=== PATIENT | female | born 1995 | race African-American/Black ===

== ENCOUNTER 2022-03-29 20:03 | Observation (INO) ==
--- NOTE | 2022-03-29 21:13 | Emergency Department Note ---
Impression & Plan Acute appendicitis, Abdominal pain ED Provider Note NAME: JOCELYNN JOSEPH AGE: 26 SEX: F : 1995 ARRIVES VIA: Walk-In INFORMANT: Patient, ED PROVIDER(S): Stan Davis DO CHIEF COMPLAINT: Abdominal pain HPI: The patient is a 26-year-old female who presented to the emergency department for an evaluation of abdominal pain. The patient's had intermittent episodes of abdominal pain for the last 2 weeks. She notices lower abdominal pain. She denies having any black or bloody bowel movements. She has had some fever. She also notices nausea. She has had no vomiting. She denies having any chest pain or difficulty breathing. She has no dysuria or frequency. She was seen at [facility] and sent to the emergency department after an outpatient CAT scan showed possible appendicitis. The patient has no surgical history. She is not currently . The patient states the pain is worsened with movement as well as palpation over the lower abdomen. ROS: See above HPI for pertinent positives & negatives. A total of 10 systems reviewed and were otherwise negative. PAST MEDICAL HISTORY: See Below PAST SURGICAL HISTORY: See Below FAMILY HISTORY: See Below SOCIAL HISTORY: See Below HOME MEDICATIONS: See Below ALLERGIES: See Below VITALS: See Below PHYSICAL EXAMINATION: GENERAL: Patient is awake alert in no acute distress patient is resting comfortably and showing no signs of anxiety EYES: The conjunctivae are clear. The pupils are round and reactive. EARS, NOSE, MOUTH AND THROAT: The nose is without any evidence of any deformity. Mucous membranes are moist. Tongue is midline. NECK: The neck is nontender and supple. RESPIRATORY: Normal respiratory effort is noted there is no evidence of wheezing rhonchi or rales CARDIOVASCULAR: Regular rate and rhythm noted there no murmurs rubs or gallops normal S1 normal S2. GASTROINTESTINAL: Abdomen was soft and nondistended. There was significant left lower quadrant tenderness to palpation. There is mild guarding in the left lower quadrant. MUSCULOSKELETAL/EXTREMITIES: There is no evidence of gross deformity full range of motion is noted in the hips and shoulders. SKIN: There is no obvious evidence of any rash. There are no petechiae, pallor or cyanosis noted. NEUROLOGIC: Patient is awake alert and oriented x3 MEDICAL DECISION MAKING: The patient is a 26-year-old male who presented to the emergency department for an evaluation of lower abdominal pain. The patient has had ongoing symptoms for the last week. She also has noticed fever. She was sent for an outpatient CAT scan which did reveal signs of appendicitis. For this reason she was sent to the emergency department for further evaluation. I discussed her condition with the on-call general surgeon. She did not wish to have any pain medication in the emergency department. The surgeon agreed to evaluate the patient in the emergency department. Triage Nursing notes reviewed. Prior medical records reviewed Vital Signs: reviewed and remarkable for no significant abnormalities Differential diagnosis: Appendicitis, ovarian cyst, ovarian torsion, ectopic , TOA, PID, infections, diverticulitis, UTI, obstruction, mesenteric ischemia, aortic pathology, inflammatory bowel disease, renal colic, PUD, pancreatitis, biliary pathology, hernia, volvulus, constipation, as well as other pathologies. ER treatment provided: See below Diagnostics interpreted by me: ECG: none Laboratory studies: As stated above and show below. Imaging studies: See below Consultation(s): Dr. Carrasco was notified about the patient. He will evaluate the patient in the ER. Past Med/Surg History Medical History (Updated 03/30/22 @ 00:16 by Stan Davis DO) Acute appendicitis with localized peritonitis Hepatitis B Social History Smoking Status: Never smoker Feels Safe at Home: Yes Allergies Allergies Allergy/AdvReac Type Severity Reaction Status Date / Time No Known Allergies Allergy Verified 03/29/22 22:00 Home Meds Home Medications Medication Instructions Recorded Confirmed Paolo 03/29/22 Results & Data (ED) Vital Signs Vital Signs - 24 hr 03/29/22 20:26 03/29/22 21:07 03/29/22 21:10 Temperature 37.1 C Temperature Source Temporal Artery Scan Pulse Rate 69 72 64 Pulse Rate [Apical] Pulse Rate from SpO2 Sensor 70 62 Respiratory Rate 20 21 16 Respiratory Effort / Characteristics Non-Labored Respiratory Depth Normal Respiratory Pattern Regular Blood Pressure 115/72 Blood Pressure [Right Arm] Blood Pressure Mean 86 Blood Pressure Mean [Right Arm] Blood Pressure Position Sitting Blood Pressure Position [Right Arm] Pulse Oximetry 98 100 100 Oxygen Delivery Method Room Air Oxygen Flow Rate Sepsis Recent Fever Within 48 Hours Yes Sepsis New/Unexplained Change in Mental Status N/A Sepsis Action Taken by Nursing No Action Required 03/29/22 21:20 03/29/22 20:58 03/29/22 23:15 Temperature 36.4 C L Temperature Source Oral Pulse Rate 65 88 Pulse Rate [Apical] 76 Pulse Rate from SpO2 Sensor 62 Respiratory Rate 17 12 24 Respiratory Effort / Characteristics Respiratory Depth Respiratory Pattern Blood Pressure 113/71 107/75 Blood Pressure [Right Arm] 117/71 Blood Pressure Mean 85 85 Blood Pressure Mean [Right Arm] 86 Blood Pressure Position Blood Pressure Position [Right Arm] Pulse Oximetry 100 100 100 Oxygen Delivery Method Room Air Room Air Oxymask Oxygen Flow Rate 4 Sepsis Recent Fever Within 48 Hours Sepsis New/Unexplained Change in Mental Status Sepsis Action Taken by Nursing 03/29/22 23:25 03/29/22 23:35 03/29/22 23:35 Temperature 36.4 C L 36.4 C L 36.4 C L Temperature Source Oral Oral Oral Pulse Rate Pulse Rate [Apical] 79 64 64 Pulse Rate from SpO2 Sensor Respiratory Rate 23 16 16 Respiratory Effort / Characteristics Respiratory Depth Respiratory Pattern Blood Pressure Blood Pressure [Right Arm] 116/72 114/64 114/64 Blood Pressure Mean Blood Pressure Mean [Right Arm] 86 80 80 Blood Pressure Position Blood Pressure Position [Right Arm] Lying Pulse Oximetry 100 99 100 Oxygen Delivery Method Oxymask Room Air Room Air Oxygen Flow Rate 2 Sepsis Recent Fever Within 48 Hours Sepsis New/Unexplained Change in Mental Status Sepsis Action Taken by Nursing 03/29/22 23:45 03/29/22 23:55 Temperature 36.4 C L 36.4 C L Temperature Source Oral Oral Pulse Rate Pulse Rate [Apical] 62 64 Pulse Rate from SpO2 Sensor Respiratory Rate 19 14 Respiratory Effort / Characteristics Respiratory Depth Respiratory Pattern Blood Pressure Blood Pressure [Right Arm] 108/64 105/66 Blood Pressure Mean Blood Pressure Mean [Right Arm] 78 79 Blood Pressure Position Blood Pressure Position [Right Arm] Pulse Oximetry 100 100 Oxygen Delivery Method Room Air Room Air Oxygen Flow Rate Sepsis Recent Fever Within 48 Hours Sepsis New/Unexplained Change in Mental Status Sepsis Action Taken by [facility] Medications Current Medication List: was personally reviewed by me Laboratory Data Attestation: I reviewed the patient's lab results. Lab Results 03/29/22 Range/Units 20:33 SARS-CoV-2, RNA, NAAT NEGATIVE (NEGATIVE) Administered Medications Discontinued Medications Bupivacaine HCl (Bupivacaine 0.5 % 5 Mg/1 Ml Mpf 30ml Vial) Confirm Administered Dose 30 ml .ROUTE .STK-MED ONE Stop: 03/29/22 21:20 Last Admin: 03/29/22 22:51 Dose: 20 ml Documented By: VERENICE Epinephrine HCl (Epinephrine Inj 1 Mg/Ml Amp) Confirm Administered Dose 1 mg .ROUTE .STK-MED ONE Stop: 03/29/22 21:20 Last Admin: 03/29/22 22:51 Dose: 0.15 mg Documented By: VERENICE Cefoxitin Sodium 1,000 mg/ (Dextrose) 60 mls @ 120 mls/hr IV PREOP@2215 ONE Stop: 03/29/22 22:44 Last Admin: 03/29/22 22:20 Dose: 120 mls/hr Documented By: ALIRIO Imaging Data Radiologist's Impression: Patient: JOCELYNN JOSEPH Admit Date: 03/29/22 MR#: [id number] Address1: [address] [place] [address] Acct ID:[id number] Address2: [address] Date: 1995 [facility] Zip: [place] [address] Age: 26 Location: CT Sex: F Room/Bed: Att Phy: Vianey Ny D.O. Diagnosis: RLQ PAIN, R/O APPY *HOLD PT/CALL REPORT* Sherry Phy: Vianey Ny D.O. Service Date: 03/29/22 Fam Phy: Interpreting Phy: Jeffery Garner MD Admit Phy: Ordering Phy: Vianey Ny D.O. cc: ~ CT OF THE ABDOMEN AND PELVIS WITH AND WITHOUT CONTRAST CLINICAL HISTORY: Right lower quadrant pain. Evaluate for acute appendicitis. COMPARISON STUDY: None. TECHNIQUE: Unenhanced axial images of the abdomen were obtained followed by contrast-enhanced axial images of the abdomen and pelvis. Intravenous injection of 92 cc of Optiray 320 IV was uneventful. Automated exposure control was utilized for the study. A dose lowering technique was utilized adhering to the principles of ALARA. Oral contrast was administered. CT DOSE: 444.82 mGy.cm FINDINGS: The right breast is not visualized on this abdominal CT. Subpleural right lower lobe opacity reflects atelectasis. No pneumatosis, free air or portal venous gas is present. Liver, spleen, adrenal glands, kidneys and pancreas are unremarkable. There is no biliary or pancreatic ductal dilatation. No peripancreatic or pericholecystic stranding is present. Nephrograms are symmetric. No hydronephrosis is present. The caliber and wall thickness of small and large bowel are normal. The proximal aspect of the appendix is normal. The remainder of the appendix is mildly dilated, measuring 8 mm in caliber. There may be minimal periappendiceal infiltration. No free air or abscess is present. The appendiceal wall is likely thickened. No contrast within the appendix is present. There is no free fluid. Major vasculature is patent. 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 IMPRESSION: Findings suggestive of early acute appendicitis. No free air or abscess. This finding will be called/faxed to ordering provider at time of dictation. ACT 112: Negative or not required by law. Electronically signed by: Jeffery Garner M.D. 03/29/2022 7:25 PM Dictated: 03/29/221913 Transcribed: 03/29/221913 Discharge Plan Visit Data Chief Complaint: Flank Pain Stated Complaint: REF FROM CT, APENDICITIS ED Provider: Stan Davis Discharge Problem: Acute appendicitis, Abdominal pain Patient Disposition: Being Evaluated by Surgeon Discharge Instructions Interventions: ED Discharge Assessment Last Done: 03/29/22 21:31
[2022-03-29] MEDS ORDERED: HYDROmorphone INJ 1 MG/ML SYRINGE IV PRN (21:17)
[2022-03-29] MEDS ORDERED: PHENYLEPHRINE 100MCG/ML 5ML SYR IV PRN (21:17)
[2022-03-29] MEDS ORDERED: ePHEDrine sulfate 50 MG/ML AMP IV PRN (21:17)
[2022-03-29] MEDS ORDERED: fentaNYL citrate 100 MCG/2 ML VIAL IV PRN (21:17)
[2022-03-29] MEDS ORDERED: LABETALOL HCL IV 5 MG/ML 20ML IV PRN (21:17)
[2022-03-29] MEDS ORDERED: ONDANSETRON INJ 2 MG/ML 2 ML VIAL IV PRN (21:17)
[2022-03-29] MEDS ORDERED: MEPERIDINE HCL 25 MG/ML CARP/VIAL IV PRN (21:17)
[2022-03-29] MEDS ORDERED: ATROPINE SULFATE 0.1 MG/ML 10ML SYR IV PRN (21:17)
[2022-03-29] MEDS ORDERED: EPINEPHrine INJ 1 MG/ML AMP ONE (21:19)
[2022-03-29] MEDS ORDERED: BUPIVACAINE 0.5 % 5 MG/1 ML MPF 30ML VIAL ONE (21:19)
--- NOTE | 2022-03-29 21:19 | Anesthesiology Consultation ---
Date of Service March 29, 2022 Assessment & Plan (1) Encounter for pre-operative examination: Chart Review Chart Review: Acceptable Risk for Surgery and Patient NOT seen in Pre Admission Testing Consults Requested none History Surgery Operation Date: 03/29/22 22:00 Proposed Procedures p Laparoscopic Appendectomy - Herman Carrasco MD Height/Weight Weight: 56.7 kg Social History Smoking Status: Never smoker Physical Exam Vital Signs Last Vital Signs Temp 37.1 C 03/29/22 20:26 Pulse 69 03/29/22 20:26 Resp 20 03/29/22 20:26 BP 115/72 03/29/22 20:26 Pulse Ox 98 03/29/22 20:26 O2 Del Method 03/29/22 20:26
[2022-03-29] MEDS ORDERED: MIDAZOLAM HCL 1 MG/ML 2ML VIAL ONE (21:25)
[2022-03-29] MEDS ORDERED: fentaNYL citrate 100 MCG/2 ML VIAL ONE (21:25)
[2022-03-29] MEDS ORDERED: GLYCOPYRROLATE 0.2 MG/ML VIAL ONE (21:29)
[2022-03-29] MEDS ORDERED: DEXAMETHASONE SOD INJ 4 MG/ML VIAL ONE (21:29)
[2022-03-29] MEDS ORDERED: ROCURONIUM BROMIDE 10 MG/ML 5 ML VIAL IV ONE (21:29)
[2022-03-29] MEDS ORDERED: LIDOCAINE 2% MPF LOCAL 5 ML VIAL INFIL ONE (21:29)
[2022-03-29] MEDS ORDERED: PROPOFOL IV EMULSION 10 MG/ML 20 ML VIAL IV ONE (21:29)
[2022-03-29] MEDS ORDERED: NEOSTIGMINE METHYLSULFATE 1 MG/ML 10ML VIAL ONE (21:29)
[2022-03-29] MEDS ORDERED: ONDANSETRON INJ 2 MG/ML 2 ML VIAL ONE (21:29)
[2022-03-29] MEDS ORDERED: Patient's ALLERGY Info needs ENTERED SCH (21:45)
--- NOTE | 2022-03-29 21:47 | History & Physical Report ---
Date of Service March 29, 2022 Assessment & Plan (1) Acute appendicitis with localized peritonitis: Plan: IVF IV abx to OR for lap appendectomy History of Present Illness Primary Care Provider: Vianey Ny DO This is a 26-year-old female who presented to the emergency department for an evaluation of abdominal pain. She was seen at [facility] and sent to the emergency department after an outpatient CAT scan showed possible appendicitis. The patient has no surgical history. She is not currently . The patient states the pain is worsened with movement as well as palpation over the lower abdomen. A CT scan shows early appendicitis. Past Med/Surg History Medical History (Updated 03/29/22 @ 21:48 by Herman Carrasco MD) Acute appendicitis with localized peritonitis Social History Smoking Status: Never smoker Feels Safe at Home: Yes Review of Systems + fever and + anorexia; no chills and no sweats no problem reported no problem reported no cough and no dyspnea no chest pain + abdominal pain and + nausea; no vomiting and no change in bowel habits no dysuria no back pain and no neck pain no rash and no lesions no localized weakness and no generalized weakness no behavioral changes Physical Exam Constitutional: WD/WN, vitals as above Eyes: PERRL, conjunctivae normal, anicteric sclerae ENMT: external ear and nose normal, oropharynx normal Neck: trachea midline Respiratory: normal respiratory effort, lungs clear to auscultation Cardiovascular: RRR, no murmur, no edema Gastrointestinal (Abdomen): Inspection/Auscultation: abdomen normal to inspection and normal bowel sounds; abdomen not distended Percussion/Palpation: + abdomen tender, + guarding and abdomen soft; abdomen not rigid Musculoskeletal: Head/Neck/Chest: normocephalic and head atraumatic Skin: no rashes, warm and dry ASA Classification ASA ASA2E Results & Data ([facility]) Vital Signs (Past 12 Hours) Vital Signs Temp Pulse Resp BP Pulse Ox O2 Del Method 03/29/22 20:58 88 12 107/75 100 Room Air 03/29/22 21:20 65 17 113/71 100 Room Air 03/29/22 21:10 64 16 100 03/29/22 21:07 72 21 100 03/29/22 20:26 37.1 C 69 20 115/72 98 Room Air Diagnostic Findings CT OF THE ABDOMEN AND PELVIS WITH AND WITHOUT CONTRAST CLINICAL HISTORY: Right lower quadrant pain. Evaluate for acute appendicitis. COMPARISON STUDY: None. TECHNIQUE: Unenhanced axial images of the abdomen were obtained followed by contrast-enhanced axial images of the abdomen and pelvis. Intravenous injection of 92 cc of Optiray 320 IV was uneventful. Automated exposure control was utilized for the study. A dose lowering technique was utilized adhering to the principles of ALARA. Oral contrast was administered. CT DOSE: 444.82 mGy.cm FINDINGS: The right breast is not visualized on this abdominal CT. Subpleural right lower lobe opacity reflects atelectasis. No pneumatosis, free air or portal venous gas is present. Liver, spleen, adrenal glands, kidneys and pancreas are unremarkable. There is no biliary or pancreatic ductal dilatation. No peripancreatic or pericholecystic stranding is present. Nephrograms are symmetric. No hydronephrosis is present. The caliber and wall thickness of small and large bowel are normal. The proximal aspect of the appendix is normal. The remainder of the appendix is mildly dilated, measuring 8 mm in caliber. There may be minimal periappendiceal infiltration. No free air or abscess is present. The appendiceal wall is likely thickened. No contrast within the appendix is present. There is no free fluid. Major vasculature is patent. 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 IMPRESSION: Findings suggestive of early acute appendicitis. No free air or abscess. This finding will be called/faxed to ordering provider at time of dictation
[2022-03-29] MEDS ORDERED: IBUPROFEN 600 MG TAB PO PRN (21:48)
[2022-03-29] MEDS ORDERED: MoRPHine SULFATE 4 MG/ML 1 ML CARP\\VIAL IV PRN (21:48)
[2022-03-29] MEDS ORDERED: IBUPROFEN 200 MG TAB PO PRN (21:48)
[2022-03-29] MEDS ORDERED: oxyCODONE/ACETAMINOPHEN 5mg/325mg TAB PO PRN ×2 (21:48)
[2022-03-29] MEDS ORDERED: MoRPHine SULFATE 2 MG/ML CARP IV PRN (21:48)
[2022-03-29] MEDS ORDERED: cefOXitin 1,000 MG/50 ML BAG IV STA (21:48)
[2022-03-29] MEDS ORDERED: ESMOLOL HCL INJ 10 MG/ML 10ML VIAL IV ONE (22:24)
[2022-03-29] MEDS ORDERED: KETOROLAC 30 MG/ML VIAL ONE (22:41)
--- NOTE | 2022-03-29 22:56 | Post Operative Brief Note ---
Immediate Post Op Note v1 Date of Surgery March 29, 2022 Pre & Post Diagnosis Operation Date: 03/29/22 22:00 Pre-Op Diagnosis: Acute appendicitis with localized peritonitis Post-Op Diagnosis: Acute appendicitis with localized peritonitis I identified the patient and participated in the time-out.: Yes Procedure Operation Date: 03/29/22 22:00 Actual Procedures p Laparoscopic Appendectomy(Not Applicable) - Herman Carrasco MD Surgeon Herman Carrasco MD Building [employer] none Estimated Blood Loss 5 Findings Consistent with Post-Op Diagnosis acute early appendicitis
--- NOTE | 2022-03-29 23:47 | Anesthesiology Progress Note ---
Date of Service March 29, 2022 Anesthesia Post Procedure Vital Signs Vital Signs: Temp Pulse Pulse Resp BP BP Pulse Ox 03/29/22 23:35 36.4 C L 64 16 114/64 100 03/29/22 23:35 36.4 C L 64 16 114/64 99 03/29/22 23:25 36.4 C L 79 23 116/72 100 03/29/22 23:15 36.4 C L 76 24 117/71 100 03/29/22 20:58 88 12 107/75 100 03/29/22 21:20 65 17 113/71 100 03/29/22 21:10 64 16 100 03/29/22 21:07 72 21 100 03/29/22 20:26 37.1 C 69 20 115/72 98 O2 Del Method O2 Flow Rate 03/29/22 23:35 Room Air 03/29/22 23:35 Room Air 03/29/22 23:25 Oxymask 2 03/29/22 23:15 Oxymask 4 03/29/22 20:58 Room Air 03/29/22 21:20 Room Air 03/29/22 21:10 03/29/22 21:07 03/29/22 20:26 Room Air Transfer of Care Handoff Completed per policy Notes Mental Status: alert / awake / arousable Patient Amnestic to Procedure: Yes Nausea / Vomiting: adequately controlled Pain: adequately controlled Airway Patency, RR, SpO2: stable & adequate BP & HR: stable & adequate Hydration State: stable & adequate Anesthetic Complications: no major complications apparent and Pt Satisfied with anesthetic care Notes: The patient is awake and comfortable. Her temp is now 36.4.
[2022-03-30] MEDS ORDERED: ONDANSETRON INJ 2 MG/ML 2 ML VIAL IV PRN (00:31)
[2022-03-30] MEDS: LACTATED RINGER'S 1,000 ML IV SCH ×2 (00:44→12:47)
[2022-03-30 01:52] LABS: Basophils # (auto) 0.01 K/uL (0-0.2); Basophils % (auto) 0.2 %; Eosinophils # (auto) 0.03 K/uL (0-0.50); Eosinophils % (auto) 0.6 %; Hemoglobin 11.6 g/dl (12.0-16.0); Immature Granulocytes # (auto) 0.01 K/uL (0.00-0.02); Immature Granulocytes % (auto) 0.2 %; Lymphocytes # (auto) 0.74 K/uL (1.2-3.4); Lymphocytes % (auto) 14.1 %; Mean Corpuscular Hemoglobin 26.1 pg (25.0-34.0); Mean Corpuscular Hgb Conc 31.4 g/dL (32.0-36.0); Mean Corpuscular Volume 83.3 fL (80.0-100.0); Mean Platelet Volume 10.2 fL (9.4-12.3); Monocytes # (auto) 0.13 K/uL (0.24-0.82); Monocytes % (auto) 2.5 %; Neutrophils # (auto) 4.32 K/uL (1.4-6.5); Neutrophils % (auto) 82.4 %; Platelet Count 230 K/uL (130-400); RDW Coefficient of Variation 12.8 % (11.5-14.5); RDW Standard Deviation 38.8 fL (36.4-46.3); Red Blood Count 4.44 M/uL (3.93-5.22); White Blood Count 5.24 K/ul (4.8-10.8)
[2022-03-30 02:16] LABS: Pregnancy Test, Serum Negative (Negative)
[2022-03-30 02:24] LABS: Albumin Globulin Ratio 1.4 (0.9-2); BUN Creatinine Ratio 10.9 (10-20); Bilirubin,Total 0.3 mg/dl (0.2-1.0); Calcium 8.6 mg/dl (8.5-10.1); Creatinine Clr Calc Pharmacy 73.9 ml/min; Est GFR (African American) 98.2 ml/min; Est GFR (Non-African American) 84.7 ml/min; Globulin 2.9 gm/dl (2.5-4.0); Potassium 3.9 mmol/L (3.5-5.1); Total Protein 6.9 gm/dl (6.0-8.3)
[2022-03-30] MEDS: cefOXitin 2,000 MG in DEXTROSE 5% 50 ML IV SCH ×2 (04:18→12:47)
--- NOTE | 2022-03-30 08:12 | Operative Report (OR) ---
DATE OF PROCEDURE: 03/29/2022. PREOPERATIVE DIAGNOSIS: Acute appendicitis. POSTOPERATIVE DIAGNOSIS: Acute early appendicitis. PROCEDURE PERFORMED: Laparoscopic appendectomy. SURGEON: Herman Carrasco MD CATH LAB NURSE: None. ANESTHESIA: General endotracheal with 0.5% Marcaine with epinephrine local. ESTIMATED BLOOD LOSS: 5 mL. DRAINS: None. COMPLICATIONS: None. SPECIMEN: Appendix sent for pathologic evaluation. INDICATIONS FOR PROCEDURE: This is a 26-year-old female seen through the ED with acute abdominal amaury n. She had a CT scan, which was consistent with an early appendicitis. She had peritoneal signs on exam. We therefore recommended a laparoscopic appendectomy. We went over the risks of an open proce dure, abscess requiring reoperation or CT drainage, wound problems including hernia and infection. S he agreed to this and wished to proceed. DESCRIPTION OF PROCEDURE: The patient was taken to the OR and underwent excellent general endotrache al anesthesia. Abdomen was prepped and draped in normal sterile fashion. A transverse supraumbilica l incision was made and with tension on the abdominal wall, a Veress needle was inserted in gently. Good pneumoperitoneum was then achieved to 15 mmHg pressure. A visualized 11 port was then placed in the supraumbilical position with tension on the abdominal wall. Once the port was placed, good diag nostic lap was performed. Appendix was identified and inflamed. A 5 suprapubic, a 5 right upper celsa drant and a 12 left lower quadrant port were placed. The patient was placed in head down and rolled to the left. The cecum was grasped with a Harsh clamp. The tip of the appendix was grasped and st retched to display the mesoappendix. Mesoappendix was taken down with a Harmonic scalpel with minima l bleeding. Once this was taken down to the base of the appendix, a ABIMAEL 45 varela load was used to mullins sect the appendix at its base. The appendix was brought out through an Endobag in the left lower celsa drant port and then sent for pathologic evaluation. The ports were replaced. Pneumoperitoneum was r e-established. The abdomen was then irrigated out with about 250 mL of saline. There was minimal bl eeding on the staple line. No other abnormalities were noted. The ports were then removed. The pne umoperitoneum was decompressed. 0 Vicryl was used to close the fascial defect in the 11 and 12 ports . 0.5% Marcaine was used to create a local field block in all the incisions. Interrupted Vicryl was used to close the skin. Steri-Strips and benzoin were used to reinforce the incision. Sterile dress ings were applied. She tolerated the procedure without any complication and was sent to the postoper ative recovery for a period of observation. Once she meets criteria, she will be sent to the floor f or the rest of her care. Job ID: [id number]
--- NOTE | 2022-03-30 14:08 | Surgery Progress Note ---
Date of Service March 30, 2022 Assessment & Plan (1) Acute appendicitis with localized peritonitis: Plan: IVF IV abx to OR for lap appendectomy 03/30/2022 2:06PM. Dr. monreal F/U S/P lap appy, POD 1 pt is doing fine, no fever, good control incision pain, pt wants to go today, the post -op care instruction was given, F/U 2 weeks, Admission and Anticipated Discharge Date Admission Date: March 29, 2022 Subjective S/U S/ P lap appy, POD 1 pt is doing fine, tolerated diet, no fever, Review of Systems Constitutional: + fever and + anorexia; no chills and no sweats Eyes: no problem reported Ear, Nose, Mouth, Throat: no problem reported Respiratory: no cough and no dyspnea Cardiovascular: no chest pain Gastrointestinal: + abdominal pain and + nausea; no vomiting and no change in bowel habits Genitourinary: no dysuria Musculoskeletal: no back pain and no neck pain Integumentary: no rash and no lesions Neurologic: no localized weakness and no generalized weakness Psychiatric: no behavioral changes Results & Data ([facility]) Vital Signs (Past 12 Hours) Vital Signs Temp Pulse Pulse Pulse Resp BP BP 03/30/22 12:57 36.5 C 64 69 64 16 92/57 L 98/63 L 03/30/22 06:33 36.5 C 64 16 98/63 L 03/30/22 03:15 36.4 C L 63 16 103/66 03/30/22 02:30 36.6 C 68 16 98/65 L Pulse Ox O2 Del Method 03/30/22 12:57 98 03/30/22 06:33 98 Room Air 03/30/22 03:15 99 Room Air 03/30/22 02:30 99 Room Air Laboratory Results Abnormal lab results 03/30/22 03/30/22 Range/Units 01:25 01:25 Hgb 11.6 L (12.0-16.0) g/dl MCHC 31.4 L (32.0-36.0) g/dL Lymph # (Auto) 0.74 L (1.2-3.4) K/uL Yancey # (Auto) 0.13 L (0.24-0.82) K/uL Glucose 112 H (70-99(Fasting)) mg/dl
--- NOTE | 2022-03-30 21:24 | Discharge Summary (DS) ---
DATE OF ADMISSION: 03/29/2022 DATE OF DISCHARGE: 03/30/2022 ADMISSION DIAGNOSIS: Acute appendicitis. DISCHARGE DIAGNOSIS: Acute appendicitis. OPERATION: Laparoscopic appendectomy. SURGEON: Herman Carrasco MD. DETAILS OF DISCHARGE SUMMARY: This is a 26-year-old female who presented to ED with acute abdominal pain. The patient had a CT scan diagnosis of acute appendicitis and the patient was taken to the OR by Dr. Herman Carrasco for laparoscopic appendectomy, and the patient tolerated the procedure well. After the procedure, the patient was transferred to recovery room and later on transferred to [facility]. The patient is doing fine. She tolerated the diet. No significant abdominal pain. No sam sea, no vomiting, no fever. PHYSICAL EXAMINATION: VITAL SIGNS: Temperature is 36.5, respiratory rate of 16, heart rate at 69, blood pressure 98/63, O2 saturation 98% on room air. GENERAL: The patient is alert, awake, oriented x3. HEENT: Within normal limitation. NEUROLOGIC: Intact. NECK: No JVD. CHEST: Bilateral lung sounds clear. HEART: Normal S1 and S2. No murmur. ABDOMEN: Soft, mild tenderness on the incision site. No rebound pain, no distention. All incisions intact. No redness. Bowel sounds positive. EXTREMITIES: All extremities with no edema. The patient wanted to go home. We gave the patient postoperative care instructions, the patient unde rshelena, and Dr. Carrasco will follow up with the patient in 2 weeks. Job ID: [id number]
== END 2022-03-30 14:45 | disposition home or self-care (01) ==
LOC: ED 20:03 → 3N 21:22 → ASU 21:22

== ENCOUNTER 2023-06-18 16:52 | Inpatient (IN) ==
[2023-06-18 18:14] LABS: Total Protein Urine Random 14.4 mg/dl (0-11.9)
[2023-06-18 18:16] LABS: Basophils # (auto) 0.05 K/uL (0.00-0.20); Basophils % (auto) 0.7 %; Eosinophils # (auto) 0.11 K/uL (0.00-0.50); Eosinophils % (auto) 1.4 %; Hematocrit (blood only) 33.3 % (37.0-47.0); Hemoglobin 10.3 g/dl (12.0-16.0); Immature Granulocytes # (auto) 0.05 K/uL (0.01-0.20); Immature Granulocytes % (auto) 0.7 %; Lymphocytes # (auto) 1.64 K/uL (1.20-3.40); Lymphocytes % (auto) 21.4 %; Mean Corpuscular Hgb Conc 30.9 g/dL (32.0-36.0); Mean Corpuscular Volume 77.6 fL (80.0-100.0); Mean Platelet Volume 12.8 fL (9.4-12.4); Monocytes # (auto) 0.94 K/uL (0.11-0.59); Monocytes % (auto) 12.2 %; Neutrophils # (auto) 4.89 K/uL (1.40-6.50); Neutrophils % (auto) 63.6 %; Nucleated RBC # (auto) 0.04 K/uL (0.00-0.12); Nucleated RBC % (auto) 0.5 %; Platelet Count 219 K/uL (130-400); RDW Coefficient of Variation 14.4 % (11.5-14.5); RDW Standard Deviation 39.8 fL (36.4-46.3); Red Blood Count 4.29 M/uL (4.20-5.40); White Blood Count 7.68 K/ul (4.8-10.8)
[2023-06-18 18:19] LABS: Creatinine Urine Random 54.1 mg/dl; Protein Creatinine Ratio Urine 0.3 (0-0.2)
[2023-06-18] MEDS ORDERED: NIFEdipine 10 MG CAP PO STA ×2 (18:23→18:27)
[2023-06-18] MEDS ORDERED: NIFEdipine 10 MG CAP ONE (18:26)
[2023-06-18] MEDS: LACTATED RINGER'S 1,000 ML IV PRN (18:30)
[2023-06-18 18:33] LABS: Albumin Globulin Ratio 1.1 (0.9-2); Albumin Level 3.4 gm/dl (3.4-5.0); BUN Creatinine Ratio 9.9 (10-20); Bilirubin,Total 0.3 mg/dl (0.2-1.0); Calcium 9.1 mg/dl (8.6-10.3); Creatinine Clr Calc Pharmacy 83.2 ml/min; Est GFR (African American) 87.1 ml/min; Est GFR (Non-African American) 75.2 ml/min; Globulin 3.2 gm/dl (2.5-4.0); Potassium 4.2 mmol/L (3.5-5.1); Total Protein 6.6 gm/dl (6.0-8.3)
[2023-06-18] MEDS ORDERED: OXYTOCIN 30 UNITS/500 ML BAG IV PRN ×2 (18:39→19:38)
[2023-06-18] MEDS ORDERED: MAG SULFATE 4GM BOLUS FROM BAG IV ONE (18:39)
[2023-06-18] MEDS ORDERED: LIDOCAINE 1% LOCAL 20 ML VIAL INFIL PRN (18:39)
--- NOTE | 2023-06-18 18:52 | History & Physical Report ---
Date of Service June 18, 2023 Assessment & Plan (1) Pre-eclampsia during in third trimester, antepartum: Plan: IUP at 36 5/7 weeks who presented to L&D for decreased movement but did have BP's in severe range requiring one dose of procardia urine protein/creatinine ratio is elevated so makes diagnosis of Pre-Eclampsia with BP's in the severe range - rest of PIH labs are in the normal range but creatinine is elevated at 1.01 over prior level of 0.84 in october 2022 cervical balloon placed successfully and will start low dose pitocin overnight because of unfavorable cervix to augment the contractions she is already experiencing. begin MgSO4 for seizure prophylaxis anticipate vaginal History of Present Illness Primary Care Provider: Soraya Alonso DO Brinda Patient is a 27 yo female EDC 07/11/23 who presents to L&D because of decreased movement. heart tracing is reactive and she is janna every 5 minutes but they are mild. However, her BP is in the severe range consistently 160-170/105-110. she denies any PIH symptoms at this time. protein dips negative for protein but urine protein/creatinine ratio is 0.3 and creatinine is 1.01. creatinine in 11/10 was 0.84pregnancy is also complicated by alpha thalassemia minor carrier and chronic active Hepatitis B for which she is followed by GI. her most recent viral load was low and she is no longer taking Tenofovir. Allergies Allergy/AdvReac Type Severity Reaction Status Date / Time No Known Allergies Allergy Verified 06/15/23 08:54 Home Medications Medication Instructions Recorded Confirmed Type prenat.vits,sherly,zfl-gkoh-dhmki PO 05/13/22 06/15/23 History tenofovir alafenamide 25 mg tablet 25 mg PO 12/29/22 06/15/23 History (Vemlidy) breast pump #1 ea 04/20/23 06/15/23 Rx Patient History Medical History (Updated 06/18/23 @ 19:50 by Ada Hadley MD, FACOG) Acute appendicitis with localized peritonitis Breast lipoma non cancerous 08/2022, R breast Examination, routine, over 18 years of age Hepatitis B carrier Ovarian cyst Positive BRENDEN (antinuclear antibody) Thalassemia Thalassemia alpha carrier Varicella vaccine Surgical History H/O neck surgery S/P appendectomy Status post third molar tooth extraction Family History Father Hepatitis B Diabetes Denies family history of Ovarian cancer Breast cancer Colorectal cancer Uterine cancer Social History Smoking Status: Never smoker Second Hand Exposure: No; Do You Dip or Chew Tobacco: No; Hx Alcohol Use: No Hx Substance Use: No Preferred Language: Pakistani Communication Ability: Effective Theater Technician Required: No Beliefs That Will Affect Care: None marital status: marital status details: Deepak Gusman [phone] Current Living Situation: Spouse Current Living Situation Comment: spouse current occupational status: unemployed Feels Safe at Home: Yes Assistive Devices: None Review of Systems All systems reviewed & are unremarkable except as noted in HPI & below Physical Exam Constitutional: WD/WN, vitals as above Respiratory: normal respiratory effort, lungs clear to auscultation Cardiovascular: RRR, no murmur, no edema Neurologic: normal DTR's, no clonus Psychiatric: A+Ox3, euthymic affect Genitourinary: OB Exam Abdomen: + vertex, + estimated weight (6-7 pounds) and + regular contractions (Q 5-7 minutes) Manual OB Exam: + cervical dilation fingertip, + cervical effacement 50% and + station -2 OB Exam Monitor Tracing: + external FHT monitor used, + external uterine monitor used, + category I and + normal FHT variability (decreased) patient consents to placement of cervical balloon. speculum was placed and cervix visualized. whiting catheter placed without difficulty. the balloon filled with 40cc of sterile water. the catheter was then placed on traction and secured to her right thigh. patient tolerated procedure well. Results & Data Vital Signs (Past 12 Hours) Vital Signs Temp Pulse Resp BP Pulse Ox 06/18/23 17:24 98.1 F 18 06/18/23 18:18 58 L 06/18/23 18:18 168/105 H 06/18/23 18:05 64 06/18/23 18:05 177/106 H 06/18/23 17:58 57 L 06/18/23 17:58 176/101 H 06/18/23 17:37 100 06/18/23 17:37 61 06/18/23 17:38 60 06/18/23 17:38 178/109 H 06/18/23 17:32 100 06/18/23 17:32 60 06/18/23 17:29 59 L 06/18/23 17:29 168/109 H 06/18/23 17:27 100 06/18/23 17:27 64 06/18/23 17:28 60 06/18/23 17:28 161/114 H 06/18/23 17:22 66 100 06/18/23 17:17 65 100 06/18/23 17:16 67 134/91 06/18/23 17:12 69 99 06/18/23 17:07 60 99 06/18/23 17:02 71 100 Coding Level of Care Code None Diagnoses Pre-eclampsia during in third trimester, antepartum O14.93 CPT Codes Misx Procedure Codes - 57402 Placement of cervical dilator: 70824 Placement of cervical dilator ([id number])
[2023-06-18] MEDS ORDERED: BUTORPHANOL TARTRATE 1 MG/ML VIAL IV PRN (19:56)
[2023-06-18] MEDS ORDERED: Nursing to Pharmacy Communication SCH (20:00)
[2023-06-18] MEDS: MAGNESIUM SULFATE / WTR 40 GM/1,000 ML BAG IV SCH (20:14)
[2023-06-18] MEDS: TENOFOVIR ALAFENAMIDE FUMARATE PO SCH (22:58)
[2023-06-19] MEDS: LACTATED RINGER'S 1,000 ML IV PRN ×3 (02:30→12:43)
[2023-06-19] MEDS ORDERED: CITRIC ACID/SODIUM CITRATE 15 ML UDC PO SCH (06:00)
[2023-06-19] MEDS ORDERED: ceFAZolin 2000MG 2,000 MG/15 ML SYR IV SCH (06:00)
[2023-06-19 07:06] LABS: Basophils # (auto) 0.03 K/uL (0.00-0.20); Basophils % (auto) 0.4 %; Eosinophils # (auto) 0.09 K/uL (0.00-0.50); Eosinophils % (auto) 1.1 %; Hematocrit (blood only) 31.4 % (37.0-47.0); Hemoglobin 10.1 g/dl (12.0-16.0); Immature Granulocytes # (auto) 0.04 K/uL (0.01-0.20); Immature Granulocytes % (auto) 0.5 %; Lymphocytes # (auto) 1.39 K/uL (1.20-3.40); Mean Corpuscular Hemoglobin 24.1 pg (25.0-34.0); Mean Corpuscular Hgb Conc 32.2 g/dL (32.0-36.0); Mean Corpuscular Volume 74.9 fL (80.0-100.0); Mean Platelet Volume 12.5 fL (9.4-12.4); Monocytes # (auto) 0.85 K/uL (0.11-0.59); Monocytes % (auto) 10.4 %; Neutrophils # (auto) 5.77 K/uL (1.40-6.50); Neutrophils % (auto) 70.6 %; Nucleated RBC # (auto) 0.02 K/uL (0.00-0.12); Nucleated RBC % (auto) 0.2 %; Platelet Count 213 K/uL (130-400); RDW Coefficient of Variation 14.6 % (11.5-14.5); RDW Standard Deviation 39.2 fL (36.4-46.3); Red Blood Count 4.19 M/uL (4.20-5.40); White Blood Count 8.17 K/ul (4.8-10.8)
[2023-06-19 07:20] LABS: Albumin Level 3.2 gm/dl (3.4-5.0); Bilirubin Direct 0.1 mg/dl (0-0.2); Bilirubin,Total 0.4 mg/dl (0.2-1.0); Creatinine Clr Calc Pharmacy 96.5 ml/min; Est GFR (African American) 104.3 ml/min; Total Protein 6.1 gm/dl (6.0-8.3)
[2023-06-19] MEDS ORDERED: ACETAMINOPHEN 325 MG TAB PO PRN (07:26)
--- NOTE | 2023-06-19 07:48 | Labor Progress Brief Note ---
Date of Service June 19, 2023 Subjective Patient resting in bed. Notes a mild heath. no n/v. no cp/sob Has whiting in and on low dose pit overnight, just now started going up. Assessment & Plan (1) Pre-eclampsia during in third trimester, antepartum: (2) Thalassemia alpha carrier: (3) Hepatitis B: Plan Taking over for Dr. Rose , course reviewed. BPS have been controlled since start of treatment. Place whiting for accurate I and O. Baby category one for the most part with decreased variabilty c/w mag effect, can hear fm with monitor. Tylenol for heath. anticipate . Admission and Anticipated Discharge Date Admission Date: June 18, 2023 Physical Exam Constitutional: WD/WN, vitals as above Gastrointestinal (Abdomen): soft, gravid, nt Psychiatric: A+Ox3, euthymic affect Genitourinary: cx--deferred, whiting in efm--120s with min to mod variabiltiy c/w mag effect, no accels, no decels toco--rare contraction Results & Data Vital Signs (Past 12 Hours) Vital Signs Temp Pulse Resp BP O2 Del Method 06/19/23 07:15 16 06/19/23 07:22 36.7 C 16 06/19/23 07:22 Room Air 06/19/23 06:15 16 06/19/23 05:15 18 06/19/23 03:00 16 06/19/23 01:15 18 06/19/23 00:15 18 06/18/23 23:15 18 06/18/23 22:15 18 06/18/23 21:00 18 06/18/23 20:45 18 06/18/23 20:30 18 06/19/23 07:39 92 H 132/87 06/19/23 07:20 87 114/73 06/19/23 07:07 85 114/71 06/19/23 06:20 80 113/70 06/19/23 06:15 16 06/19/23 06:15 16 06/19/23 06:00 78 110/68 06/19/23 05:39 71 117/66 06/19/23 05:15 18 06/19/23 05:15 18 06/19/23 05:19 71 112/71 06/19/23 04:59 82 127/81 06/19/23 04:39 88 128/85 06/19/23 04:19 86 126/86 06/19/23 04:15 18 06/19/23 04:15 18 06/19/23 04:01 76 128/89 06/19/23 03:39 77 132/86 06/19/23 03:19 81 122/76 06/19/23 03:01 81 131/80 06/19/23 03:00 16 06/19/23 03:00 36.4 C L 16 06/19/23 02:39 91 H 102/68 06/19/23 02:19 76 116/77 06/19/23 02:15 18 06/19/23 02:15 18 06/19/23 02:00 72 122/72 06/19/23 01:39 69 117/72 06/19/23 01:15 18 06/19/23 01:15 18 06/19/23 01:19 71 114/71 06/19/23 00:59 71 131/93 06/19/23 00:40 69 136/89 06/19/23 00:16 18 06/19/23 00:16 18 06/19/23 00:23 77 157/96 H 06/19/23 00:16 18 06/19/23 00:16 18 06/18/23 23:59 77 06/18/23 23:59 129/86 06/18/23 23:41 77 06/18/23 23:41 125/78 06/18/23 23:15 18 06/18/23 23:15 36.6 C 18 06/18/23 23:19 76 06/18/23 23:19 131/88 06/18/23 23:00 80 06/18/23 23:00 140/86 06/18/23 22:15 18 06/18/23 22:15 18 06/18/23 22:19 82 06/18/23 22:19 116/61 06/18/23 22:00 88 06/18/23 22:00 132/82 06/18/23 21:15 18 06/18/23 21:15 18 06/18/23 21:39 72 06/18/23 21:39 127/86 06/18/23 21:19 83 06/18/23 21:19 128/83 10/29/23 21:02 75 06/18/23 21:02 128/81 06/18/23 20:48 76 06/18/23 20:48 133/87 06/18/23 20:32 85 06/18/23 20:32 120/73 06/18/23 20:19 84 06/18/23 20:19 128/81 06/18/23 19:59 76 06/18/23 19:59 127/80 Coding Level of Care Code None Diagnoses Pre-eclampsia during in third trimester, antepartum O14.93 Thalassemia alpha carrier D56.3 Hepatitis B B19.10
[2023-06-19] MEDS ORDERED: ePHEDrine sulfate 50 MG/ML AMP ONE (10:49)
[2023-06-19] MEDS ORDERED: SODIUM CHLORIDE 0.9% PF INJ 10 ML VIAL ONE (10:49)
[2023-06-19] MEDS ORDERED: fentaNYL citrate PF 100 MCG/2 ML VIAL ONE (10:49)
[2023-06-19] MEDS ORDERED: BUPIVACAINE 0.25% PF 30 ML VIAL ONE (10:50)
[2023-06-19] MEDS ORDERED: fentANYL 2 MCG/ML BUPIVacaine 0.125%-NSS 100ML BAG ONE (10:50)
[2023-06-19] MEDS ORDERED: LIDOCAINE 2%/EPINEPHRINE 1:200,000 20 ML PF ONE ×2 (10:50→15:14)
[2023-06-19] MEDS ORDERED: NALBUPHINE HCL INJ 10 MG/ML AMP IV PRN ×2 (11:01→15:20)
[2023-06-19] MEDS ORDERED: fentaNYL citrate PF 100 MCG/2 ML VIAL EPI STA (11:01)
[2023-06-19] MEDS ORDERED: BUPIVACAINE 0.25% PF 30 ML VIAL EPI PRN (11:01)
[2023-06-19] MEDS ORDERED: NALOXONE HCL 1 MG in SODIUM CHLORIDE 0.9% 1,000 ML IV PRN ×2 (11:01→15:20)
[2023-06-19] MEDS ORDERED: LIDOCAINE 2% MPF LOCAL 5 ML VIAL EPI PRN (11:01)
[2023-06-19] MEDS ORDERED: fentANYL 2 MCG/ML BUPIVacaine 0.125%-NSS 100ML BAG EPI PRN (11:01)
[2023-06-19] MEDS ORDERED: LIDOCAINE 2%/EPINEPHRINE 1:200,000 20 ML PF EPI STA (11:01)
[2023-06-19] MEDS ORDERED: ONDANSETRON INJ 2 MG/ML 2 ML VIAL IV PRN ×3 (11:01→16:06)
[2023-06-19] MEDS ORDERED: fentaNYL citrate PF 100 MCG/2 ML VIAL EPI PRN (11:01)
[2023-06-19] MEDS ORDERED: SODIUM CHLORIDE 0.9% PF INJ 10 ML VIAL EPI STA (11:01)
[2023-06-19] MEDS ORDERED: BUPIVACAINE 0.25% PF 30 ML VIAL EPI STA (11:01)
[2023-06-19] MEDS ORDERED: ePHEDrine sulfate 50 MG/ML AMP IV PRN ×2 (11:01→15:20)
[2023-06-19] MEDS ORDERED: NALOXONE HCL 0.4 MG/1 ML VIAL/CARP IV PRN ×2 (11:01→15:20)
[2023-06-19] MEDS ORDERED: SODIUM CHLORIDE 0.9% PF INJ 10 ML VIAL EPI PRN (11:01)
[2023-06-19] MEDS ORDERED: ROPIVACAINE 0.5% PF 5 MG/ML 20 ML VIAL EPI PRN (11:01)
--- NOTE | 2023-06-19 11:03 | Anesthesiology Consultation ---
Date of Service June 19, 2023 Assessment & Plan (1) Encounter for pre-operative examination: Chart Review Chart Review: Patient NOT seen in Pre Admission Testing and Acceptable Risk for Labor Epidural Consults Requested none History Height/Weight Height: 5 ft 6 in Weight: 71.271 kg Allergies Allergy/AdvReac Type Severity Reaction Status Date / Time No Known Allergies Allergy Verified 06/15/23 08:54 Medications Home Medications Medication Instructions Recorded Confirmed Last Taken prenat.vits,sherly,pmy-tbok-fbhod PO 05/13/22 06/15/23 Unknown tenofovir alafenamide 25 mg tablet 25 mg PO 12/29/22 06/15/23 Unknown (Vemlidy) breast pump #1 ea 04/20/23 06/15/23 Unknown Active Medications Generic Name Dose Route Start Last Admin Trade Name Freq PRN Reason Stop Dose Admin Acetaminophen 650 mg 06/19/23 07:26 06/19/23 07:45 Acetaminophen 325 Mg Tab PO 07/19/23 07:25 650 mg Q4H PRN Administration Headache Lactated Ringer's 1,000 mls @ 125 mls/hr 06/18/23 18:39 06/19/23 11:02 Lr IV 06/20/23 18:38 75 mls/hr .Q8H PRN Infusion L&D Protocol Protocol Magnesium Sulfate 40 gm in 1,000 mls @ 50 mls/hr 06/18/23 18:45 06/19/23 07:07 Magnesium Sulfate / Wtr IV 07/18/23 18:44 50 mls/hr .Q20H JOCELYN Infusion Oxytocin 30 units in 500 mls @ 14 mls/hr 06/18/23 19:38 06/19/23 10:40 Pitocin IV 06/20/23 19:37 0.84 units/hr .Q24H PRN 14 mls/hr Labor Induction/Augmentation Titration Protocol 0.84 UNITS/HR Tenofovir Alafenamide 1 each 06/18/23 22:45 06/18/23 22:58 Tenofovir Alafenamide Fumarate PO 07/18/23 22:44 1 each HS JOCELYN Administration Past Medical History Medical History (Updated 06/19/23 @ 07:45 by Janine Martinez MD, FACOG) Acute appendicitis with localized peritonitis Breast lipoma non cancerous 08/2022, R breast Examination, routine, over 18 years of age Hepatitis B carrier Ovarian cyst Positive BRENDEN (antinuclear antibody) Thalassemia Thalassemia alpha carrier Varicella vaccine Exercise / Class Metabolic Activity II 4-5 Yardwork/Stairs/Walk up hill Past Family History Family History Father Hepatitis B Diabetes Denies family history of Ovarian cancer Breast cancer Colorectal cancer Uterine cancer Past Surgical History Surgical History H/O neck surgery when she was very young, not sure what kind of surgery S/P appendectomy Status post third molar tooth extraction Social History Smoking Status: Never smoker Do You Dip or Chew Tobacco: No Hx Alcohol Use: No Hx Substance Use: No Physical Exam Vital Signs Last Vital Signs Temp 36.7 C 06/19/23 07:22 Pulse 94 H 06/19/23 11:20 Resp 18 06/19/23 10:30 BP 106/73 06/19/23 11:19 Pulse Ox 98 06/19/23 11:20 O2 Del Method Room Air 06/19/23 07:22 Testing Laboratory Results 06/19/23 06:40 06/19/23 06:40
--- NOTE | 2023-06-19 11:53 | Labor Progress Brief Note ---
Date of Service June 19, 2023 Subjective Patient comfortable with epidural arom earlier, clear Assessment & Plan (1) Pre-eclampsia during in third trimester, antepartum: (2) Hepatitis B: Plan Making good changes, srom for clear fluid. Min variability c/w mag effect. Did have some variability with scalp stim and occasional 10x10. will continue to monitor the baby closely. Made patient aware that if the fetus does not tolerate contractions, may have to proceed with c/s. she expresses understanding. Admission and Anticipated Discharge Date Admission Date: June 18, 2023 Physical Exam Physical Exam: bulb removed, sitting at introitus cx--5/90/-2 +scal stim toco--q4-5min, pit at 14 efm--120s wtih min to mod variability , small accels, now having variables with most contractions. fetus with mag effect Results & Data Vital Signs (Past 12 Hours) Vital Signs Temp Pulse Resp BP Pulse Ox O2 Del Method 06/19/23 10:00 16 06/19/23 08:00 16 06/19/23 09:00 18 06/19/23 07:15 16 06/19/23 07:22 36.7 C 16 06/19/23 07:22 Room Air 06/19/23 06:15 16 06/19/23 05:15 18 06/19/23 03:00 16 06/19/23 01:15 18 06/19/23 00:15 18 06/19/23 11:47 107 H 127/77 06/19/23 11:45 103 H 122/73 99 06/19/23 11:42 91 H 109/61 06/19/23 11:41 88 81/49 L 06/19/23 11:40 88 98 06/19/23 11:39 90 90/52 L 06/19/23 11:38 104 H 99/49 L 06/19/23 11:35 98 06/19/23 11:35 97 H 06/19/23 11:35 99 H 113/73 06/19/23 11:32 96 H 113/73 06/19/23 11:30 98 H 99 06/19/23 11:29 100 H 119/69 06/19/23 11:27 88 112/68 06/19/23 11:25 99 06/19/23 11:25 89 06/19/23 11:25 93 H 117/79 06/19/23 11:24 91 H 116/63 06/19/23 11:20 94 H 98 06/19/23 11:19 95 H 106/73 06/19/23 11:17 102 H 129/77 06/19/23 11:15 92 H 133/82 99 06/19/23 11:13 96 H 140/70 06/19/23 11:11 89 135/86 06/19/23 11:10 86 100 06/19/23 11:08 99 H 91 06/19/23 11:05 100 H 100 06/19/23 11:00 100 06/19/23 11:00 76 06/19/23 11:00 75 117/74 06/19/23 10:55 76 100 06/19/23 10:50 92 H 100 06/19/23 10:45 80 100 06/19/23 10:40 84 107/71 100 06/19/23 10:35 80 100 06/19/23 10:30 82 18 100 06/19/23 10:25 79 100 06/19/23 10:20 76 100 06/19/23 10:21 74 108/70 06/19/23 10:15 73 100 06/19/23 10:10 88 100 06/19/23 10:05 91 H 100 06/19/23 10:00 99 06/19/23 10:00 85 06/19/23 10:00 78 117/76 06/19/23 09:55 94 H 100 06/19/23 09:50 83 98 06/19/23 09:45 84 98 06/19/23 09:40 74 98 06/19/23 09:39 76 110/71 06/19/23 09:35 74 98 06/19/23 09:30 73 98 06/19/23 09:25 76 98 06/19/23 09:20 99 06/19/23 09:20 98 H 06/19/23 09:20 80 112/68 06/19/23 09:00 18 06/19/23 09:00 18 06/19/23 09:15 77 98 06/19/23 08:59 77 112/71 06/19/23 08:41 75 121/77 06/19/23 07:30 16 06/19/23 07:30 16 06/19/23 08:19 72 119/75 06/19/23 08:00 85 16 132/89 06/19/23 07:39 92 H 132/87 06/19/23 07:20 87 114/73 06/19/23 07:07 85 114/71 06/19/23 06:20 80 113/70 06/19/23 06:15 16 06/19/23 06:15 16 06/19/23 06:00 78 110/68 06/19/23 05:39 71 117/66 06/19/23 05:15 18 06/19/23 05:15 18 06/19/23 05:19 71 112/71 06/19/23 04:59 82 127/81 06/19/23 04:39 88 128/85 06/19/23 04:19 86 126/86 06/19/23 04:15 18 06/19/23 04:15 18 06/19/23 04:01 76 128/89 06/19/23 03:39 77 132/86 06/19/23 03:19 81 122/76 06/19/23 03:01 81 131/80 06/19/23 03:00 16 06/19/23 03:00 36.4 C L 16 06/19/23 02:39 91 H 102/68 06/19/23 02:19 76 116/77 06/19/23 02:15 18 06/19/23 02:15 18 06/19/23 02:00 72 122/72 06/19/23 01:39 69 117/72 06/19/23 01:15 18 06/19/23 01:15 18 06/19/23 01:19 71 114/71 06/19/23 00:59 71 131/93 06/19/23 00:40 69 136/89 06/19/23 00:16 18 06/19/23 00:16 18 06/19/23 00:23 77 157/96 H 06/19/23 00:16 18 06/19/23 00:16 18 06/18/23 23:59 77 06/18/23 23:59 129/86 Coding Level of Care Code None Diagnoses Pre-eclampsia during in third trimester, antepartum O14.93 Hepatitis B B19.10
--- NOTE | 2023-06-19 13:31 | Labor Progress Brief Note ---
Date of Service June 19, 2023 Subjective comfortable Assessment & Plan (1) Pre-eclampsia during in third trimester, antepartum: Plan continue to monitor closely, fetus category 2 , variability secondary to mag, variables most likely related to cord. Need to get contractions more powerful, which means we will need more pitocin. Will very carefully increase as able if baby tolerates. If baby does not tolerate, will proceed with c/s. Discussed this with the patient who expresses understanding of the situation. Admission and Anticipated Discharge Date Admission Date: June 18, 2023 Physical Exam Physical Exam: cx--6/100/-2 toco--q4-5min efm--130s with min variability consistent with mag effect, small accels, +scalp stim, variables with most contractions, some deep/some not so deep Results & Data Vital Signs (Past 12 Hours) Vital Signs Temp Pulse Resp BP Pulse Ox O2 Del Method 06/19/23 12:00 16 06/19/23 10:00 16 06/19/23 08:00 16 06/19/23 09:00 18 06/19/23 07:15 16 06/19/23 07:22 36.7 C 16 06/19/23 07:22 Room Air 06/19/23 06:15 16 06/19/23 05:15 18 06/19/23 03:00 16 06/19/23 13:25 105 H 100 06/19/23 13:24 84 115/65 06/19/23 13:20 85 97 06/19/23 13:19 88 109/64 06/19/23 13:15 85 110/65 99 06/19/23 13:10 83 98 06/19/23 13:09 83 106/64 06/19/23 13:05 83 109/62 98 06/19/23 13:02 83 108/61 06/19/23 13:00 36.5 C 86 18 98 06/19/23 12:55 85 110/60 99 06/19/23 12:50 86 97 06/19/23 12:49 84 108/63 06/19/23 12:47 96 H 115/59 L 06/19/23 12:45 86 99 06/19/23 12:40 90 98 06/19/23 12:41 91 H 119/56 L 06/19/23 12:35 83 98 06/19/23 12:36 83 100/57 L 06/19/23 12:30 85 18 101/58 L 99 06/19/23 11:00 18 06/19/23 11:00 36.5 C 18 06/19/23 12:27 85 100/56 L 06/19/23 12:25 88 98 06/19/23 11:00 18 06/19/23 11:00 18 06/19/23 12:20 88 98 06/19/23 12:19 87 105/58 L 06/19/23 12:17 93 H 98/53 L 06/19/23 12:15 115 H 118/69 100 06/19/23 12:13 93 H 113/67 06/19/23 12:10 95 H 97 06/19/23 12:11 93 H 117/69 06/19/23 12:09 95 H 115/68 06/19/23 12:07 104 H 113/66 06/19/23 12:05 99 06/19/23 12:05 89 06/19/23 12:05 93 H 120/72 06/19/23 12:03 94 H 115/70 06/19/23 12:00 95 H 18 99 06/19/23 12:01 99 H 112/64 06/19/23 11:59 93 H 100/58 L 06/19/23 11:57 107 H 112/51 L 06/19/23 11:55 98 06/19/23 11:55 99 H 06/19/23 11:55 102 H 122/73 06/19/23 11:53 106 H 117/72 06/19/23 11:50 108 H 100 06/19/23 11:51 103 H 119/74 06/19/23 11:49 118 H 114/63 06/19/23 11:47 107 H 127/77 06/19/23 11:45 103 H 122/73 99 06/19/23 11:42 91 H 109/61 06/19/23 11:41 88 81/49 L 06/19/23 11:40 88 98 06/19/23 11:39 90 90/52 L 06/19/23 11:38 104 H 99/49 L 06/19/23 11:35 98 06/19/23 11:35 97 H 06/19/23 11:35 99 H 113/73 06/19/23 11:32 96 H 113/73 06/19/23 11:30 98 H 99 06/19/23 11:29 100 H 119/69 06/19/23 11:27 88 112/68 06/19/23 11:25 99 06/19/23 11:25 89 06/19/23 11:25 93 H 117/79 06/19/23 11:24 91 H 116/63 06/19/23 11:20 94 H 98 06/19/23 11:19 95 H 106/73 06/19/23 11:17 102 H 129/77 06/19/23 11:15 92 H 133/82 99 06/19/23 11:13 96 H 140/70 06/19/23 11:11 89 135/86 06/19/23 11:10 86 100 06/19/23 11:08 99 H 91 06/19/23 11:05 100 H 100 06/19/23 11:00 100 06/19/23 11:00 76 06/19/23 11:00 75 117/74 06/19/23 10:55 76 100 06/19/23 10:50 92 H 100 06/19/23 10:45 80 100 06/19/23 10:40 84 107/71 100 06/19/23 10:35 80 100 06/19/23 10:30 82 18 100 06/19/23 10:25 79 100 06/19/23 10:20 76 100 06/19/23 10:21 74 108/70 06/19/23 10:15 73 100 06/19/23 10:10 88 100 06/19/23 10:05 91 H 100 06/19/23 10:00 99 06/19/23 10:00 85 06/19/23 10:00 78 117/76 06/19/23 09:55 94 H 100 06/19/23 09:50 83 98 06/19/23 09:45 84 98 06/19/23 09:40 74 98 06/19/23 09:39 76 110/71 06/19/23 09:35 74 98 06/19/23 09:30 73 98 06/19/23 09:25 76 98 06/19/23 09:20 99 06/19/23 09:20 98 H 06/19/23 09:20 80 112/68 06/19/23 09:00 18 06/19/23 09:00 18 06/19/23 09:15 77 98 06/19/23 08:59 77 112/71 06/19/23 08:41 75 121/77 06/19/23 07:30 16 06/19/23 07:30 16 06/19/23 08:19 72 119/75 06/19/23 08:00 85 16 132/89 06/19/23 07:39 92 H 132/87 06/19/23 07:20 87 114/73 06/19/23 07:07 85 114/71 06/19/23 06:20 80 113/70 06/19/23 06:15 16 06/19/23 06:15 16 06/19/23 06:00 78 110/68 06/19/23 05:39 71 117/66 06/19/23 05:15 18 06/19/23 05:15 18 06/19/23 05:19 71 112/71 06/19/23 04:59 82 127/81 06/19/23 04:39 88 128/85 06/19/23 04:19 86 126/86 06/19/23 04:15 18 06/19/23 04:15 18 06/19/23 04:01 76 128/89 06/19/23 03:39 77 132/86 06/19/23 03:19 81 122/76 06/19/23 03:01 81 131/80 06/19/23 03:00 16 06/19/23 03:00 36.4 C L 16 06/19/23 02:39 91 H 102/68 06/19/23 02:19 76 116/77 06/19/23 02:15 18 06/19/23 02:15 18 06/19/23 02:00 72 122/72 06/19/23 01:39 69 117/72 Coding Level of Care Code None Diagnoses Pre-eclampsia during in third trimester, antepartum O14.93
[2023-06-19] MEDS: MAGNESIUM SULFATE / WTR 40 GM/1,000 ML BAG IV SCH (13:45)
--- NOTE | 2023-06-19 15:08 | Labor Progress Brief Note ---
Date of Service June 19, 2023 Subjective comfortable Assessment & Plan (1) Pre-eclampsia during in third trimester, antepartum: Plan heart tones continue to get a bit more concerning. Certainly the minimal variability is mostly contributed to by mag. However, her strip, although reactive with 15x15, was not spectacular. Variability has decreased even more under obs. Placed iupc and contractions are nowhere close to adequate and pit at 18. I do not believe that this fetus will tolerate what will be needed to achieve a vaginal delivery. Recommend c/s. She expresses understanding. Consent reviewed and signed. Admission and Anticipated Discharge Date Admission Date: June 18, 2023 Physical Exam Physical Exam: cx--01/28/-3 [id number] efm--130s with min variability (mostly mag effect), variables that are beginning to take on a late appearance. a very minimal response to scalp stim Results & Data Vital Signs (Past 12 Hours) Vital Signs Temp Pulse Resp BP Pulse Ox O2 Del Method 06/19/23 14:00 16 06/19/23 12:00 16 06/19/23 10:00 16 06/19/23 08:00 16 06/19/23 09:00 18 06/19/23 07:15 16 06/19/23 07:22 36.7 C 16 06/19/23 07:22 Room Air 06/19/23 06:15 16 06/19/23 05:15 18 06/19/23 15:00 98 H 119/83 98 06/19/23 14:55 82 99 06/19/23 14:50 86 99 06/19/23 14:45 100 06/19/23 14:45 96 H 06/19/23 14:45 96 H 124/82 06/19/23 14:40 98 H 100 06/19/23 14:35 87 98 06/19/23 14:30 90 16 120/80 98 06/19/23 14:25 87 98 06/19/23 14:20 88 98 06/19/23 14:15 97 06/19/23 14:15 86 06/19/23 14:15 87 116/75 06/19/23 14:10 88 98 06/19/23 14:05 87 98 06/19/23 14:01 85 121/79 06/19/23 14:00 85 16 98 06/19/23 13:55 94 H 98 06/19/23 13:50 85 98 06/19/23 13:45 93 H 99 06/19/23 13:44 86 119/77 06/19/23 13:40 98 06/19/23 13:40 88 06/19/23 13:40 93 H 118/76 06/19/23 13:35 98 06/19/23 13:35 84 06/19/23 13:35 88 118/72 06/19/23 13:30 88 99 06/19/23 13:31 87 122/77 06/19/23 13:25 105 H 100 06/19/23 13:24 84 115/65 06/19/23 13:20 85 97 06/19/23 13:19 88 109/64 06/19/23 13:15 85 110/65 99 06/19/23 13:10 83 98 06/19/23 13:09 83 106/64 06/19/23 13:05 83 109/62 98 06/19/23 13:02 83 108/61 06/19/23 13:00 36.5 C 86 18 98 06/19/23 12:55 85 110/60 99 06/19/23 12:50 86 97 06/19/23 12:49 84 108/63 06/19/23 12:47 96 H 115/59 L 06/19/23 12:45 86 99 06/19/23 12:40 90 98 06/19/23 12:41 91 H 119/56 L 06/19/23 12:35 83 98 06/19/23 12:36 83 100/57 L 06/19/23 12:30 85 18 101/58 L 99 06/19/23 11:00 18 06/19/23 11:00 36.5 C 18 06/19/23 12:27 85 100/56 L 06/19/23 12:25 88 98 06/19/23 11:00 18 06/19/23 11:00 18 06/19/23 12:20 88 98 06/19/23 12:19 87 105/58 L 06/19/23 12:17 93 H 98/53 L 06/19/23 12:15 115 H 118/69 100 06/19/23 12:13 93 H 113/67 06/19/23 12:10 95 H 97 06/19/23 12:11 93 H 117/69 06/19/23 12:09 95 H 115/68 06/19/23 12:07 104 H 113/66 06/19/23 12:05 99 06/19/23 12:05 89 06/19/23 12:05 93 H 120/72 06/19/23 12:03 94 H 115/70 06/19/23 12:00 95 H 18 99 06/19/23 12:01 99 H 112/64 06/19/23 11:59 93 H 100/58 L 06/19/23 11:57 107 H 112/51 L 06/19/23 11:55 98 06/19/23 11:55 99 H 06/19/23 11:55 102 H 122/73 06/19/23 11:53 106 H 117/72 06/19/23 11:50 108 H 100 06/19/23 11:51 103 H 119/74 06/19/23 11:49 118 H 114/63 06/19/23 11:47 107 H 127/77 06/19/23 11:45 103 H 122/73 99 06/19/23 11:42 91 H 109/61 06/19/23 11:41 88 81/49 L 06/19/23 11:40 88 98 06/19/23 11:39 90 90/52 L 06/19/23 11:38 104 H 99/49 L 06/19/23 11:35 98 06/19/23 11:35 97 H 06/19/23 11:35 99 H 113/73 06/19/23 11:32 96 H 113/73 06/19/23 11:30 98 H 99 06/19/23 11:29 100 H 119/69 06/19/23 11:27 88 112/68 06/19/23 11:25 99 06/19/23 11:25 89 06/19/23 11:25 93 H 117/79 06/19/23 11:24 91 H 116/63 06/19/23 11:20 94 H 98 06/19/23 11:19 95 H 106/73 06/19/23 11:17 102 H 129/77 06/19/23 11:15 92 H 133/82 99 06/19/23 11:13 96 H 140/70 06/19/23 11:11 89 135/86 06/19/23 11:10 86 100 06/19/23 11:08 99 H 91 06/19/23 11:05 100 H 100 06/19/23 11:00 100 06/19/23 11:00 76 06/19/23 11:00 75 117/74 06/19/23 10:55 76 100 06/19/23 10:50 92 H 100 06/19/23 10:45 80 100 06/19/23 10:40 84 107/71 100 06/19/23 10:35 80 100 06/19/23 10:30 82 18 100 06/19/23 10:25 79 100 06/19/23 10:20 76 100 06/19/23 10:21 74 108/70 06/19/23 10:15 73 100 06/19/23 10:10 88 100 06/19/23 10:05 91 H 100 06/19/23 10:00 99 06/19/23 10:00 85 06/19/23 10:00 78 117/76 06/19/23 09:55 94 H 100 06/19/23 09:50 83 98 06/19/23 09:45 84 98 06/19/23 09:40 74 98 06/19/23 09:39 76 110/71 06/19/23 09:35 74 98 06/19/23 09:30 73 98 06/19/23 09:25 76 98 06/19/23 09:20 99 06/19/23 09:20 98 H 06/19/23 09:20 80 112/68 06/19/23 09:00 18 06/19/23 09:00 18 06/19/23 09:15 77 98 06/19/23 08:59 77 112/71 06/19/23 08:41 75 121/77 06/19/23 07:30 16 06/19/23 07:30 16 06/19/23 08:19 72 119/75 06/19/23 08:00 85 16 132/89 06/19/23 07:39 92 H 132/87 06/19/23 07:20 87 114/73 06/19/23 07:07 85 114/71 06/19/23 06:20 80 113/70 06/19/23 06:15 16 06/19/23 06:15 16 06/19/23 06:00 78 110/68 06/19/23 05:39 71 117/66 06/19/23 05:15 18 06/19/23 05:15 18 06/19/23 05:19 71 112/71 06/19/23 04:59 82 127/81 06/19/23 04:39 88 128/85 06/19/23 04:19 86 126/86 06/19/23 04:15 18 06/19/23 04:15 18 06/19/23 04:01 76 128/89 06/19/23 03:39 77 132/86 06/19/23 03:19 81 122/76 Coding Level of Care Code None Diagnoses Pre-eclampsia during in third trimester, antepartum O14.93
[2023-06-19] MEDS ORDERED: MoRPHine SULFATE PF 1 MG/ML 10 ML AMP/VIAL ONE (15:14)
[2023-06-19] MEDS ORDERED: PHENYLEPHRINE 100MCG/ML 10ML SYR ONE (15:14)
[2023-06-19] MEDS ORDERED: ONDANSETRON INJ 2 MG/ML 2 ML VIAL ONE (15:14)
[2023-06-19] MEDS ORDERED: OXYTOCIN 10 UNITS/ML VIAL ONE (15:14)
[2023-06-19] MEDS ORDERED: LACTATED RINGER'S 1,000 ML IV SCH (15:15)
[2023-06-19] MEDS ORDERED: NALOXONE HCL 0.08 MG in SYRINGE 1.8 ML IV PRN (15:20)
[2023-06-19] MEDS ORDERED: PROMETHAZINE HCL 6.25 MG in SODIUM CHLORIDE 0.9% 50 ML IV PRN (15:20)
[2023-06-19] MEDS ORDERED: diphenhydrAMINE 50 MG/ML VIAL IV PRN (15:20)
[2023-06-19] MEDS ORDERED: LACTATED RINGER'S 500 ML IV PRN (15:20)
[2023-06-19] MEDS ORDERED: HYDROmorphone INJ 0.5 MG/0.5 ML SYR IV PRN (15:20)
[2023-06-19] MEDS ORDERED: MoRPHine SULFATE PF 1 MG/ML 10 ML AMP/VIAL EPI ONE (15:20)
[2023-06-19] MEDS ORDERED: CALCIUM GLUCONATE 1000 MG/60 ML NSS IV ONE (15:24)
[2023-06-19] MEDS ORDERED: STAT IV/IM STA (15:26)
[2023-06-19] MEDS ORDERED: CALCIUM GLUCONATE 10% 1,000 MG in SODIUM CHLOR 0.9% MINI-B 50 ML IV ONE (15:26)
[2023-06-19] MEDS ORDERED: NO NARCOTICS OR SEDATIVES SCH (15:30)
[2023-06-19] MEDS ORDERED: SODIUM CHLORIDE 0.9% 1,000 ML IV SCH (15:30)
[2023-06-19] MEDS ORDERED: DC INTRASPINAL MORPHINE SCH (15:30)
[2023-06-19] MEDS ORDERED: AZITHROMYCIN 250 MG in DEXTROSE 5% 250 ML IV STA (15:52)
[2023-06-19] MEDS ORDERED: METHYLERGONOVINE MALEATE 0.2 MG/ML AMP ONE (15:54)
[2023-06-19] MEDS ORDERED: DIPHTHERIA/TETANUS/PERTUSSIS Vaccine (Tdap, Age 7+yrs) 0.5mL SYR/VL IM ONE (16:06)
[2023-06-19] MEDS ORDERED: HYDROCORTISONE ACETATE 25 MG SUPP PR PRN (16:06)
[2023-06-19] MEDS ORDERED: BENZOCAINE 20% SPRY 85 APPLN/85 GM CAN EXT PRN (16:06)
[2023-06-19] MEDS ORDERED: MAGNESIUM HYDROXIDE SUSP 30 ML UDC PO PRN (16:06)
[2023-06-19] MEDS ORDERED: SENNA 8.6 MG TAB PO PRN (16:06)
--- NOTE | 2023-06-19 16:36 | Anesthesia Procedure Note ---
Date of Service June 19, 2023 Anesthesia Post Epidural Note Vital Signs Vital Signs: Temp Pulse Resp BP Pulse Ox O2 Del Method 36.5 C 74 16 113/60 100 Room Air 06/19/23 13:00 06/19/23 16:32 06/19/23 14:30 06/19/23 16:31 06/19/23 16:32 06/19/23 07:22 Pain Intensity Head: Pain Intensity: 7 Ankle: Pain Intensity: 7 Notes Mental Status: alert / awake / arousable and participated in evaluation Patient Amnestic to Procedure: No Nausea / Vomiting: adequately controlled Pain: adequately controlled Airway Patency, RR, SpO2: stable & adequate BP & HR: stable & adequate Hydration State: stable & adequate Neuraxial Anesthesia: was administered and sensory block is resolving Anesthetic Complications: no major complications apparent and Pt Satisfied with anesthetic care Epidural: Removed without complications and With tip intact
--- NOTE | 2023-06-19 16:36 | Anesthesiology Progress Note ---
Date of Service June 19, 2023 Anesthesia Post Procedure Vital Signs Vital Signs: Temp Pulse Resp BP Pulse Ox O2 Del Method 06/19/23 14:00 16 06/19/23 12:00 16 06/19/23 10:00 16 06/19/23 08:00 16 06/19/23 09:00 18 06/19/23 07:15 16 06/19/23 07:22 36.7 C 16 06/19/23 07:22 Room Air 06/19/23 06:15 16 06/19/23 05:15 18 06/19/23 03:00 16 06/19/23 01:15 18 06/19/23 00:15 18 06/18/23 23:15 18 06/18/23 22:15 18 06/18/23 21:00 18 06/18/23 20:45 18 06/18/23 20:30 18 06/18/23 19:10 36.8 C 18 06/18/23 17:24 36.7 C 18 06/19/23 16:32 74 100 06/19/23 16:31 74 113/60 06/19/23 16:27 75 99 06/19/23 16:22 80 100 06/19/23 16:23 97 H 114/71 06/19/23 15:25 105 H 98 06/19/23 15:20 133 H 100 06/19/23 15:15 100 06/19/23 15:15 87 06/19/23 15:15 92 H 122/75 06/19/23 15:10 93 H 99 06/19/23 15:05 93 H 99 06/19/23 15:00 98 H 119/83 98 06/19/23 14:55 82 99 06/19/23 14:50 86 99 06/19/23 14:45 100 06/19/23 14:45 96 H 06/19/23 14:45 96 H 124/82 06/19/23 14:40 98 H 100 06/19/23 14:35 87 98 06/19/23 14:30 90 16 120/80 98 06/19/23 14:25 87 98 06/19/23 14:20 88 98 06/19/23 14:15 97 06/19/23 14:15 86 06/19/23 14:15 87 116/75 06/19/23 14:10 88 98 06/19/23 14:05 87 98 06/19/23 14:01 85 121/79 06/19/23 14:00 85 16 98 06/19/23 13:55 94 H 98 06/19/23 13:50 85 98 06/19/23 13:45 93 H 99 06/19/23 13:44 86 119/77 06/19/23 13:40 98 06/19/23 13:40 88 06/19/23 13:40 93 H 118/76 06/19/23 13:35 98 06/19/23 13:35 84 06/19/23 13:35 88 118/72 06/19/23 13:30 88 99 06/19/23 13:31 87 122/77 06/19/23 13:25 105 H 100 06/19/23 13:24 84 115/65 06/19/23 13:20 85 97 06/19/23 13:19 88 109/64 06/19/23 13:15 85 110/65 99 06/19/23 13:10 83 98 06/19/23 13:09 83 106/64 06/19/23 13:05 83 109/62 98 06/19/23 13:02 83 108/61 06/19/23 13:00 36.5 C 86 18 98 06/19/23 12:55 85 110/60 99 06/19/23 12:50 86 97 06/19/23 12:49 84 108/63 06/19/23 12:47 96 H 115/59 L 06/19/23 12:45 86 99 06/19/23 12:40 90 98 06/19/23 12:41 91 H 119/56 L 06/19/23 12:35 83 98 06/19/23 12:36 83 100/57 L 06/19/23 12:30 85 18 101/58 L 99 06/19/23 11:00 18 06/19/23 11:00 36.5 C 18 06/19/23 12:27 85 100/56 L 06/19/23 12:25 88 98 06/19/23 11:00 18 06/19/23 11:00 18 06/19/23 12:20 88 98 06/19/23 12:19 87 105/58 L 06/19/23 12:17 93 H 98/53 L 06/19/23 12:15 115 H 118/69 100 06/19/23 12:13 93 H 113/67 06/19/23 12:10 95 H 97 06/19/23 12:11 93 H 117/69 06/19/23 12:09 95 H 115/68 06/19/23 12:07 104 H 113/66 06/19/23 12:05 99 06/19/23 12:05 89 06/19/23 12:05 93 H 120/72 06/19/23 12:03 94 H 115/70 06/19/23 12:00 95 H 18 99 06/19/23 12:01 99 H 112/64 06/19/23 11:59 93 H 100/58 L 06/19/23 11:57 107 H 112/51 L 06/19/23 11:55 98 06/19/23 11:55 99 H 06/19/23 11:55 102 H 122/73 06/19/23 11:53 106 H 117/72 06/19/23 11:50 108 H 100 06/19/23 11:51 103 H 119/74 06/19/23 11:49 118 H 114/63 06/19/23 11:47 107 H 127/77 06/19/23 11:45 103 H 122/73 99 06/19/23 11:42 91 H 109/61 06/19/23 11:41 88 81/49 L 06/19/23 11:40 88 98 06/19/23 11:39 90 90/52 L 06/19/23 11:38 104 H 99/49 L 06/19/23 11:35 98 06/19/23 11:35 97 H 06/19/23 11:35 99 H 113/73 06/19/23 11:32 96 H 113/73 06/19/23 11:30 98 H 99 06/19/23 11:29 100 H 119/69 06/19/23 11:27 88 112/68 06/19/23 11:25 99 06/19/23 11:25 89 06/19/23 11:25 93 H 117/79 06/19/23 11:24 91 H 116/63 06/19/23 11:20 94 H 98 06/19/23 11:19 95 H 106/73 06/19/23 11:17 102 H 129/77 06/19/23 11:15 92 H 133/82 99 06/19/23 11:13 96 H 140/70 06/19/23 11:11 89 135/86 06/19/23 11:10 86 100 06/19/23 11:08 99 H 91 06/19/23 11:05 100 H 100 06/19/23 11:00 100 06/19/23 11:00 76 06/19/23 11:00 75 117/74 06/19/23 10:55 76 100 06/19/23 10:50 92 H 100 06/19/23 10:45 80 100 06/19/23 10:40 84 107/71 100 06/19/23 10:35 80 100 06/19/23 10:30 82 18 100 06/19/23 10:25 79 100 06/19/23 10:20 76 100 06/19/23 10:21 74 108/70 06/19/23 10:15 73 100 06/19/23 10:10 88 100 06/19/23 10:05 91 H 100 06/19/23 10:00 99 06/19/23 10:00 85 06/19/23 10:00 78 117/76 06/19/23 09:55 94 H 100 06/19/23 09:50 83 98 06/19/23 09:45 84 98 06/19/23 09:40 74 98 06/19/23 09:39 76 110/71 06/19/23 09:35 74 98 06/19/23 09:30 73 98 06/19/23 09:25 76 98 06/19/23 09:20 99 06/19/23 09:20 98 H 06/19/23 09:20 80 112/68 06/19/23 09:00 18 06/19/23 09:00 18 06/19/23 09:15 77 98 06/19/23 08:59 77 112/71 06/19/23 08:41 75 121/77 06/19/23 07:30 16 06/19/23 07:30 16 06/19/23 08:19 72 119/75 06/19/23 08:00 85 16 132/89 06/19/23 07:39 92 H 132/87 06/19/23 07:20 87 114/73 06/19/23 07:07 85 114/71 06/19/23 06:20 80 113/70 06/19/23 06:15 16 06/19/23 06:15 16 06/19/23 06:00 78 110/68 06/19/23 05:39 71 117/66 06/19/23 05:15 18 06/19/23 05:15 18 06/19/23 05:19 71 112/71 06/19/23 04:59 82 127/81 06/19/23 04:39 88 128/85 06/19/23 04:19 86 126/86 06/19/23 04:15 18 06/19/23 04:15 18 06/19/23 04:01 76 128/89 06/19/23 03:39 77 132/86 06/19/23 03:19 81 122/76 06/19/23 03:01 81 131/80 06/19/23 03:00 16 06/19/23 03:00 36.4 C L 16 06/19/23 02:39 91 H 102/68 06/19/23 02:19 76 116/77 06/19/23 02:15 18 06/19/23 02:15 18 06/19/23 02:00 72 122/72 06/19/23 01:39 69 117/72 06/19/23 01:15 18 06/19/23 01:15 18 06/19/23 01:19 71 114/71 06/19/23 00:59 71 131/93 06/19/23 00:40 69 136/89 06/19/23 00:16 18 06/19/23 00:16 18 06/19/23 00:23 77 157/96 H 06/19/23 00:16 18 06/19/23 00:16 18 06/18/23 23:59 77 06/18/23 23:59 129/86 06/18/23 23:41 77 06/18/23 23:41 125/78 06/18/23 23:15 18 06/18/23 23:15 36.6 C 18 06/18/23 23:19 76 06/18/23 23:19 131/88 06/18/23 23:00 80 06/18/23 23:00 140/86 06/18/23 22:15 18 06/18/23 22:15 18 06/18/23 22:19 82 06/18/23 22:19 116/61 06/18/23 22:00 88 06/18/23 22:00 132/82 06/18/23 21:15 18 06/18/23 21:15 18 06/18/23 21:39 72 06/18/23 21:39 127/86 06/18/23 21:19 83 06/18/23 21:19 128/83 06/18/23 19:10 18 06/18/23 19:10 36.8 C 18 06/18/23 21:02 75 06/18/23 21:02 128/81 06/18/23 20:48 76 06/18/23 20:48 133/87 06/18/23 20:32 85 06/18/23 20:32 120/73 06/18/23 20:19 84 06/18/23 20:19 128/81 06/18/23 19:59 76 06/18/23 19:59 127/80 06/18/23 19:36 88 06/18/23 19:36 146/82 H 06/18/23 19:26 90 06/18/23 19:26 147/88 H 06/18/23 19:18 93 H 06/18/23 19:18 134/85 06/18/23 19:13 93 H 06/18/23 19:13 130/83 06/18/23 18:36 61 06/18/23 18:36 163/100 H 06/18/23 18:31 63 06/18/23 18:31 170/100 H 06/18/23 18:18 58 L 06/18/23 18:18 168/105 H 06/18/23 18:05 64 06/18/23 18:05 177/106 H 06/18/23 17:58 57 L 06/18/23 17:58 176/101 H 06/18/23 17:37 100 06/18/23 17:37 61 06/18/23 17:38 60 06/18/23 17:38 178/109 H 06/18/23 17:32 100 06/18/23 17:32 60 06/18/23 17:29 59 L 06/18/23 17:29 168/109 H 06/18/23 17:27 100 06/18/23 17:27 64 06/18/23 17:28 60 06/18/23 17:28 161/114 H 06/18/23 17:22 66 100 06/18/23 17:17 65 100 06/18/23 17:16 67 134/91 06/18/23 17:12 69 99 06/18/23 17:07 60 99 06/18/23 17:02 71 100 Pain Intensity Head: Pain Intensity: 7 Ankle: Pain Intensity: 7 Transfer of Care Handoff Completed per policy Notes Mental Status: alert / awake / arousable and participated in evaluation Patient Amnestic to Procedure: No Nausea / Vomiting: adequately controlled Pain: adequately controlled Airway Patency, RR, SpO2: stable & adequate BP & HR: stable & adequate Hydration State: stable & adequate Neuraxial Anesthesia: was administered and sensory block is resolving Anesthetic Complications: no major complications apparent and Pt Satisfied with anesthetic care
[2023-06-19 16:52] LABS: Base Excess Cord Venous Blood -5.8 mEq/L (-7.7-1.9); Cord Venous Blood HCO3 23 mmol/L (18.4-26.8); Cord Venous Blood PCO2 57 mmHg (30.4-57.2); Cord Venous Blood PO2 < 20 mmHg (14.1-43.3); Cord Venous Blood pH 7.21 (7.20-7.44); O2 Saturation Cord Venous Bld < 60.0 % (<68)
[2023-06-19 16:53] LABS: Base Excess Cord Arterial Bld -7.8 mEq/L (-9-1.8); CO2 Cord Arterial Blood 61 mmHg (39.1-73.5); HCO3 Cord Arterial Blood 22 mmol/L (19.7-28.5); Oxygen Sat Cord Arterial Blood < 60.0 % (<60); PO2 Cord Arterial Blood < 20 mmHg (4.1-31.7); pH Cord Arterial Blood 7.16 (7.1-7.38)
[2023-06-19] MEDS: KETOROLAC 30 MG/ML VIAL IV PRN (17:01)
[2023-06-19 17:09] LABS: Hematocrit (blood only) 32.9 % (37.0-47.0); Hemoglobin 10.4 g/dl (12.0-16.0); Mean Corpuscular Hemoglobin 23.9 pg (25.0-34.0); Mean Corpuscular Hgb Conc 31.6 g/dL (32.0-36.0); Mean Corpuscular Volume 75.5 fL (80.0-100.0); Mean Platelet Volume 11.7 fL (9.4-12.4); Platelet Count 208 K/uL (130-400); RDW Coefficient of Variation 14.6 % (11.5-14.5); RDW Standard Deviation 39.8 fL (36.4-46.3); Red Blood Count 4.36 M/uL (4.20-5.40); White Blood Count 8.92 K/ul (4.8-10.8)
[2023-06-19 17:25] LABS: Albumin Level 3.3 gm/dl (3.4-5.0); BUN Creatinine Ratio 6.8 (10-20); Bilirubin,Total 0.4 mg/dl (0.2-1.0); Calcium 7.6 mg/dl (8.6-10.3); Creatinine Clr Calc Pharmacy 71.2 ml/min; Est GFR (African American) 72.2 ml/min; Est GFR (Non-African American) 62.3 ml/min; Globulin 3.2 gm/dl (2.5-4.0); Magnesium Therapeutic L&D Only 6.9 mg/dL (4.0-8.0); Potassium 3.6 mmol/L (3.5-5.1); Total Protein 6.5 gm/dl (6.0-8.3)
--- NOTE | 2023-06-19 17:26 | Operative Report ---
PG Post Operative Report Pre & Post Diagnosis Operation Date: 06/19/23 15:30 Pre-Op Diagnosis: intrauterine pregnanc 36 weeks, primary section, intolerance to labor, severe preeclampsia Post-Op Diagnosis: intrauterine 36 weeks, primary section, intolerance to labor, severe preeclampsia I identified the patient and participated in the time-out.: Yes Procedure Operation Date: 06/19/23 15:30 Actual Procedures p Primary low transverse Section in LD living female at 1549(Bilateral) - Janine Martinez MD, FACOG Surgeon Janine Martinez MD, FACOG Anesthesiology Physician DR. Sosa Estimated Blood Loss 600 Findings Consistent with Post-Op Diagnosis Viable female , presenting with her brow anterior. nl uterus/tubes. pco ovaries Specimens placenta, cord gas Drains whiting Anesthesia Type Labor Epidural Complications none Disposition Accompanied Patient To Recovery: No Disposition: L&D Indications Patient is a 27yo, female who presented and diagnosed with severe preeclampsia secondary to blood pressures. Admitted for induction and Mag. whiting and low dose pit overnight. Progressed with arom for clear fluid, balloon removed and cx 5cm. Then with increasing pitocin, was not able to get into a good contraction pattern and fetus did not tolerate labor. With last exam, I questioned a brow presentation. Description of Procedure The patient was taken to the operating room where she was identified verbally and by bracelet. She was seated on the operating table where a spinal anesthetic was placed by anesthesia. She was then placed in the supine position with a leftward tilt. A Whiting catheter was placed sterilely. the patient was prepped and draped in a normal standard fashion. the anesthetic was tested and found to be adequate. A time-out was held, identifying correct patient, procedure, positioning and preoperative antibiotics. There were no concerns. A Pfannenstiel skin incision was made with a knife and taken down to the underlying layer of fascia with the knife and Bovie electrocautery. Bleeding was attended to with the Bovie. The fascia was incised in the midline with the knife and taken out laterally with scissors. The superior edge of the fascial incision was grasped, elevated and the underlying layer of rectus muscle was taken off bluntly and with scissors. In a similar fashion, the inferior edge of the fascial incision was grasped, elevated and the underlying layer of rectus muscle was taken off bluntly and with scissors. The muscles were bluntly in the midline. The peritoneum was entered bluntly. The incision was then stretched. The bladder blade was placed. The vesicouterine peritoneum was identified, entered with scissors and taken out laterally with scissors. The bladder flap was created digitally A hysterotomy incision was scored with a knife and the incision was stretched superiorly and inferiorly with the operator assistant i cementing's fingers. The operators hand was placed into the incision and the head was delivered atraumatically. The head was found to be deflexed wtih brow anterior. Nuchal cord x 1 reduced easily and fluid clear. The nose and mouth were bulb suctioned. the rest of the infant was then delivered without difficulty. The nose and mouth were again bulb suctioned. The cord was clamped and cut and the was then handed off to the awaiting straddle carrier operator for drying and attention. Cord blood and segment were obtained. The placenta was Manually extracted. The uterus was exteriorized and cleared of all clot and debris with moistened laparotomy sponges. The hysterotomy incision was repaired in two layers, the first in a running locked layer, the second in an imbricating layer. Hemostasis was noted to be good. Posterior cul-de-sac was irrigated and cleared of all clot and debris. The hysterotomy incision was again inspected and found to be hemostatic. the uterus was reinteriorized. Hysterotomy incision was again inspected and found to be hemostatic. Rectus muscles were reapproximated with several interrupted stitches of 0 Vicryl. The fascia was then reapproximated with 0 Vicryl starting at the edges and meeting in the midline. The subcuticular tissues were copiously irrigated and bleeding was attended to with cautery. The skin was then closed with 4-0 Vicryl in a subcuticular fashion. All sponge, lap and needle counts were correct x 2. The patient tolerated the procedure well and was taken to recovery in stable condition. Magnesium sulfate will be resumed. there was a concern for mag toxicity so the patient was given 1gm of calcium gluconate while in the or . I attest to the content of the Intraoperative Record and any orders documented therein. Any exceptions are noted below. OB Procedure Charges 51095
[2023-06-19] MEDS ORDERED: MAGNESIUM SULFATE / WTR 40 GM/1,000 ML BAG IV SCH (17:45)
[2023-06-19] MEDS ORDERED: METHYLERGONOVINE MALEATE 0.2 MG/ML AMP IM STA (17:47)
[2023-06-19] MEDS: SIMETHICONE 80 MG CHEW PO SCH ×2 (17:59→21:13)
[2023-06-19] MEDS: OXYTOCIN 20 UNITS in LACTATED RINGER'S 1,000 ML IV SCH (20:08)
[2023-06-19] MEDS: diphenhydrAMINE 50 MG/ML VIAL IV PRN (20:11)
[2023-06-19] MEDS: LACTATED RINGER'S 1,000 ML IV SCH (20:58)
[2023-06-19] MEDS: TENOFOVIR ALAFENAMIDE FUMARATE PO SCH (21:13)
[2023-06-19] MEDS: DOCUSATE SODIUM 100 MG CAP PO SCH (21:13)
[2023-06-20] MEDS: LACTATED RINGER'S 1,000 ML IV SCH (02:25)
[2023-06-20] MEDS: OXYTOCIN 20 UNITS in LACTATED RINGER'S 1,000 ML IV SCH (05:34)
--- NOTE | 2023-06-20 07:20 | Obstetrical Progress Note ---
Date of Service <Michelle Rubin MD - Last Filed: 06/20/23 08:12> June 20, 2023 Assessment & Plan <Michelle Rubin MD - Last Filed: 06/20/23 08:12> (1) Encounter for assessment: Plan Patient with the above mentioned history and findings was evaluated at bedside and found awake, alert, oriented in all spheres, afebrile, and in no acute distress. Vital signs showed no fever and blood pressures with scattered elevated measurements with the highest recorded being 182/104 mmHg (6 pm yesterday). Since then, her BPs have ranged from 118-142 mmHg systolic BP and 65-89 mmHg diastolic BP. Her blood type is B positive and mopst recent hemoglobin is adequate at 9.0 g/dL. She is GBS negative and rubella immune. Overall, patient is doing well clinically. Pruritus is likely associated to residual side effects of epidural. She is currently on pp MgSO4, which will be stopped today around noon. Will resume regular diet. Indwelling Smith will be removed after magnesium is stopped and patient is able to ambulate. All questions were answered. <Boy Sosa MD, FACOG - Last Filed: 06/20/23 08:02> (1) Encounter for assessment: Subjective <Michelle Rubin MD - Last Filed: 06/20/23 08:12> Janie is a 27 y/o female who is POD #1 following delivery at 36 6/7 weeks due to pre-eclampsia with severe features and intolerance to the process of labor. She reports feeling well overall this morning, but refers generalized pruritus not relieved by antihistamines and feels it would be relieved by bathing. Also refers having mildly blurry vision but no headaches. Refers moderate abdominal cramping & 5/10 pain well managed on analgesics. She is voiding through indwelling urinary catheter, which is draining clear urine that is free of blood or sediment in the collecting bag or the line. She has not passed flatus or had a bowel movement yet. Has not ambulated and has only consumed crackers and water without resulting N/V. Has some persistent lochia with some improvement this morning. Currently and supplementing with bottle feeds. Constitutional: no fever, no chills or no sweats Denies shortness of breath or difficulty breathing. Cardiovascular: no chest pain or no palpitations Breast: no breast pain Genitourinary (female): no dysuria Neurologic: no headache(s) Denies changes in vision. Physical Exam <Michelle Rubin MD - Last Filed: 06/20/23 08:12> General: Alert. Oriented to person, time, and place. Afebrile. No acute distress. Eyes: pupils equal and reactive to light bilaterally, extraocular movements intact. Cardiac: Regular rate and rhythm, no murmurs/rubs/gallops. Respiratory: Clear to auscultation bilaterally a/p, no wheezes/rales/rhonchi. No increased work of breathing. Symmetrical chest rise. No respiratory distress. Abdomen: Soft, nontender, nondistended. Bowel sounds present. Low transverse surgical scar clean, without surrounding erythema or suppuration, and healing well. Decreased sensation in the immediate area surrounding her wound, more marked in the region superior to the incision. Uterus: Uterine fundus firm, mildly tender, and palpable 2 cm below umbilicus. Lower Extremities: No lower extremity edema or swelling. No deep calf pain. Louie's negative bilaterally. Psych: Euthymic affect. Mood and affect congruence. Regular speech rate and content. Results & Data <Michelle Rubin MD - Last Filed: 06/20/23 08:12> Vital Signs (Past 12 Hours) Vital Signs Temp Pulse Resp BP Pulse Ox 06/20/23 06:00 18 98 06/20/23 06:00 18 06/20/23 05:00 18 98 06/20/23 05:00 18 06/20/23 04:00 18 98 06/20/23 04:00 36.7 C 18 06/20/23 04:00 18 06/20/23 03:00 18 98 06/20/23 03:00 18 06/20/23 02:00 18 98 06/20/23 02:00 18 06/20/23 00:30 18 98 06/20/23 00:30 18 06/19/23 23:00 18 98 06/19/23 23:00 18 06/19/23 23:00 18 06/19/23 22:00 18 99 06/19/23 22:00 18 06/19/23 21:00 18 96 06/19/23 21:00 18 06/19/23 21:00 36.7 C 18 06/19/23 20:30 18 99 06/19/23 20:30 18 06/19/23 19:30 18 06/20/23 07:04 90 97 06/20/23 06:59 87 98 06/20/23 06:54 98 H 98 06/20/23 06:49 95 H 98 06/20/23 06:47 88 93 06/20/23 06:46 78 132/78 06/20/23 06:44 81 98 06/20/23 06:39 78 100 06/20/23 06:34 84 97 06/20/23 06:33 95 H 92 06/20/23 06:29 93 H 98 06/20/23 06:26 75 94 06/20/23 06:24 85 97 06/20/23 06:19 80 95 06/20/23 06:14 95 06/20/23 06:14 72 06/20/23 06:14 72 94 06/20/23 06:09 87 93 06/20/23 06:06 78 94 06/20/23 06:04 78 95 06/20/23 05:59 83 97 06/20/23 05:54 84 96 06/20/23 05:49 75 99 06/20/23 05:46 74 118/70 06/20/23 05:44 88 96 06/20/23 05:39 89 97 06/20/23 05:36 78 92 06/20/23 05:34 81 96 06/20/23 05:29 80 97 06/20/23 05:24 79 96 06/20/23 05:20 88 94 06/20/23 05:19 79 95 06/20/23 05:14 83 97 06/20/23 05:09 79 97 06/20/23 05:04 94 H 98 06/20/23 05:03 91 H 94 06/20/23 04:59 89 97 06/20/23 04:57 82 94 06/20/23 04:54 80 97 06/20/23 04:50 79 94 06/20/23 04:49 79 96 06/20/23 04:46 80 135/87 06/20/23 04:44 98 06/20/23 04:44 82 06/20/23 04:44 90 94 06/20/23 04:39 90 97 06/20/23 04:34 84 99 06/20/23 04:33 86 92 06/20/23 04:29 89 93 06/20/23 04:24 87 96 06/20/23 04:25 92 H 94 06/20/23 04:19 91 H 95 06/20/23 04:17 100 H 87 L 06/20/23 04:14 90 99 06/20/23 04:12 89 94 06/20/23 04:09 80 96 06/20/23 04:04 83 99 06/20/23 04:03 78 94 06/20/23 03:59 79 95 06/20/23 03:57 83 94 06/20/23 03:54 97 H 96 06/20/23 03:50 82 94 06/20/23 03:49 80 95 06/20/23 03:46 85 128/78 06/20/23 03:44 84 95 06/20/23 03:42 87 94 06/20/23 03:39 96 H 97 06/20/23 03:34 89 96 06/20/23 03:29 82 96 06/20/23 03:24 81 97 06/20/23 03:19 89 97 06/20/23 03:14 86 98 06/20/23 03:09 98 H 98 06/20/23 03:04 90 98 06/20/23 02:59 85 98 06/20/23 02:54 99 H 98 06/20/23 02:49 80 98 06/20/23 02:46 82 125/73 06/20/23 02:44 88 99 06/20/23 02:39 78 97 06/20/23 02:34 82 98 06/20/23 02:29 78 99 06/20/23 02:24 78 99 06/20/23 02:19 82 98 06/20/23 02:14 82 100 06/20/23 02:09 84 98 06/20/23 02:04 96 H 96 06/20/23 01:59 78 98 06/20/23 01:54 81 98 06/20/23 01:49 79 97 06/20/23 01:46 87 133/84 06/20/23 01:44 84 99 06/20/23 01:39 87 100 06/20/23 01:34 89 98 06/20/23 01:29 88 97 06/20/23 01:24 78 100 06/20/23 01:19 77 100 06/20/23 01:14 82 97 06/20/23 01:09 79 96 06/20/23 01:04 91 H 99 06/20/23 00:59 81 97 06/20/23 00:54 73 97 06/20/23 00:49 92 H 98 06/20/23 00:46 80 135/88 06/20/23 00:44 76 99 06/20/23 00:39 77 100 06/20/23 00:17 88 99 06/20/23 00:12 85 96 06/20/23 00:07 78 97 06/20/23 00:02 77 99 06/19/23 23:57 78 98 06/19/23 23:52 85 100 06/19/23 23:47 76 98 06/19/23 23:46 79 142/88 H 06/19/23 23:42 90 100 06/19/23 23:37 80 98 06/19/23 23:32 82 97 06/19/23 23:27 81 99 06/19/23 23:22 80 100 06/19/23 23:17 82 99 06/19/23 23:12 79 96 06/19/23 23:07 78 97 06/19/23 23:02 78 98 06/19/23 22:57 82 98 06/19/23 22:52 83 98 06/19/23 22:47 89 98 06/19/23 22:46 98 H 136/89 06/19/23 22:42 81 99 06/19/23 22:37 82 98 06/19/23 22:32 83 99 06/19/23 22:27 83 98 06/19/23 22:22 83 97 06/19/23 22:17 82 97 06/19/23 22:12 84 95 06/19/23 22:07 98 H 95 06/19/23 22:02 89 99 06/19/23 21:59 88 94 06/19/23 21:57 93 H 100 06/19/23 21:52 88 98 06/19/23 21:47 88 98 06/19/23 21:46 84 136/89 06/19/23 21:42 90 100 06/19/23 21:37 79 98 10/30/23 21:32 79 97 06/19/23 21:27 80 98 06/19/23 21:22 76 97 06/19/23 21:17 100 06/19/23 21:17 74 06/19/23 21:17 89 93 06/19/23 21:12 77 99 06/19/23 21:07 81 98 06/19/23 21:02 79 100 06/19/23 20:57 79 99 06/19/23 20:52 96 H 97 06/19/23 20:47 79 97 06/19/23 20:46 87 126/78 06/19/23 20:42 81 98 06/19/23 20:37 85 100 06/19/23 20:32 81 97 06/19/23 20:27 80 97 06/19/23 20:22 92 06/19/23 20:22 86 06/19/23 20:22 86 93 06/19/23 20:17 105 H 100 06/19/23 20:12 74 99 06/19/23 20:07 79 100 06/19/23 20:02 75 97 06/19/23 19:57 77 100 06/19/23 19:52 77 96 06/19/23 19:47 84 98 06/19/23 19:42 94 H 99 06/19/23 19:37 77 99 06/19/23 19:34 75 128/79 06/19/23 19:32 72 98 06/19/23 19:27 72 98 06/19/23 19:22 74 97 06/19/23 19:19 71 136/80 06/19/23 19:17 78 100 06/19/23 19:12 77 99 <Boy Sosa MD, FACOG - Last Filed: 06/20/23 08:02> Co-Signing Physician Notes Resident Physician Supervision Note: I was present with [Name of resident] during the history and exam. I discussed the case with the resident and agree with the findings and plan as documented in the note. Any exceptions or clarifications are listed here: [None] Documented By: Boy Sosa MD, FACOG Plan to stop magnesium around noon time as her blood pressures are very good and she is having some blurred vision her urine output is excellent Resident Activity Tracking <Michelle Rubin MD - Last Filed: 06/20/23 08:12> Resident Involvement: Resident Care Provided Care Provided: OB Delivery
[2023-06-20 08:02] LABS: Hematocrit (blood only) 28.9 % (37.0-47.0); Mean Corpuscular Hemoglobin 23.9 pg (25.0-34.0); Mean Corpuscular Hgb Conc 31.1 g/dL (32.0-36.0); Mean Corpuscular Volume 76.7 fL (80.0-100.0); Mean Platelet Volume 12.3 fL (9.4-12.4); Platelet Count 217 K/uL (130-400); RDW Coefficient of Variation 14.4 % (11.5-14.5); RDW Standard Deviation 39.4 fL (36.4-46.3); Red Blood Count 3.77 M/uL (4.20-5.40); White Blood Count 11.55 K/ul (4.8-10.8)
[2023-06-20 08:23] LABS: BUN Creatinine Ratio 6.9 (10-20); Bilirubin Direct 0.1 mg/dl (0-0.2); Bilirubin,Total 0.4 mg/dl (0.2-1.0); Calcium 6.4 mg/dl (8.6-10.3); Creatinine Clr Calc Pharmacy 83.2 ml/min; Est GFR (African American) 87.1 ml/min; Est GFR (Non-African American) 75.2 ml/min; Globulin 2.9 gm/dl (2.5-4.0); Potassium 3.8 mmol/L (3.5-5.1); Total Protein 5.9 gm/dl (6.0-8.3)
[2023-06-20] MEDS: diphenhydrAMINE 50 MG/ML VIAL IV PRN (08:35)
[2023-06-20] MEDS: DOCUSATE SODIUM 100 MG CAP PO SCH ×2 (08:36→19:55)
[2023-06-20] MEDS: SIMETHICONE 80 MG CHEW PO SCH ×4 (08:36→19:55)
[2023-06-20] MEDS: PRENATAL VITAMIN 1 TAB PO SCH (08:36)
[2023-06-20] MEDS: FERROUS SULFATE 325 MG TAB PO SCH (08:36)
[2023-06-20] MEDS: KETOROLAC 30 MG/ML VIAL IV PRN (08:36)
[2023-06-20] MEDS ORDERED: diphenhydrAMINE Capsule 25 MG CAP PO PRN (09:21)
[2023-06-20] MEDS ORDERED: KETOROLAC 30 MG/ML VIAL IV PRN (09:21)
[2023-06-20] MEDS ORDERED: diphenhydrAMINE 50 MG/ML VIAL IV PRN (09:21)
[2023-06-20] MEDS ORDERED: PROMETHAZINE HCL 25 MG in SODIUM CHLORIDE 0.9% 50 ML IV PRN (09:21)
[2023-06-20] MEDS: IBUPROFEN 600 MG TAB PO PRN (19:56)
[2023-06-20] MEDS ORDERED: bisacodyL 5 MG TABEC PO SCH (20:00)
[2023-06-20] MEDS: TENOFOVIR ALAFENAMIDE FUMARATE PO SCH (21:55)
[2023-06-21] MEDS: IBUPROFEN 600 MG TAB PO PRN ×3 (04:25→18:12)
--- NOTE | 2023-06-21 07:49 | Obstetrical Progress Note ---
Date of Service <Michelle Rubin MD - Last Filed: 06/21/23 08:05> June 21, 2023 Assessment & Plan <Michelle Rubin MD - Last Filed: 06/21/23 08:05> (1) Encounter for assessment: Plan Patient with the above mentioned history and findings was evaluated at bedside and found awake, alert, oriented in all spheres, afebrile, and in no acute distress. Vital signs showed no fever and stable BP. Her blood type is B positive and most recent hemoglobin is adequate at 9.0 g/dL. She is GBS negative and rubella immune. Overall, patient is doing well clinically and refers feeling much better compared to yesterday. Patient experiencing pain but has not wanted to take the Percocet. Advised to use this medication as needed if her pain is high. Will continue post- care. All questions were answered. <Radu Pérez MD - Last Filed: 06/21/23 08:12> (1) Encounter for assessment: Subjective <Michelle Rubin MD - Last Filed: 06/21/23 08:05> Janie is a 27 y/o female who is POD #1 following delivery at 36 6/7 weeks due to pre-eclampsia with severe features and intolerance to the process of labor. She reports feeling well overall this morning. Her generalized pruritus has resolved. No loner having blurry vision. Refers moderate abdominal cramping & 6/10 pain slightly managed on analgesics. She is voiding spontaneously without difficulty. Has passed flatus, but has not yet had a bowel movement. Ambulated well and tolerating meals. Has some persistent lochia with some improvement this morning. Currently and supplementing with bottle feeds. Constitutional: no fever, no chills or no sweats Denies shortness of breath or difficulty breathing. Cardiovascular: no chest pain or no palpitations Breast: no breast pain Genitourinary (female): no dysuria Neurologic: no headache(s) Denies changes in vision. Physical Exam <Michelle Rubin MD - Last Filed: 06/21/23 08:05> General: Alert. Oriented to person, time, and place. Afebrile. No acute distress. Eyes: pupils equal and reactive to light bilaterally, extraocular movements intact. Cardiac: Regular rate and rhythm, no murmurs/rubs/gallops. Respiratory: Clear to auscultation bilaterally a/p, no wheezes/rales/rhonchi. No increased work of breathing. Symmetrical chest rise. No respiratory distress. Abdomen: Soft, nontender, nondistended. Bowel sounds present. Low transverse surgical scar clean, without surrounding erythema or suppuration, and healing well. Decreased sensation in the immediate area surrounding her wound, more marked in the region superior to the incision. Uterus: Uterine fundus firm, moderately tender, and palpable below umbilicus. Lower Extremities: No lower extremity edema or swelling. No deep calf pain. Louie's negative bilaterally. Psych: Euthymic affect. Mood and affect congruence. Regular speech rate and content. Results & Data <Michelle Rubin MD - Last Filed: 06/21/23 08:05> Vital Signs (Past 12 Hours) Vital Signs Temp Pulse Resp BP Pulse Ox O2 Del Method 06/21/23 00:20 36.7 C 82 18 130/81 06/20/23 19:50 37 C 80 18 143/90 H 100 Room Air <Radu Pérez MD - Last Filed: 06/21/23 08:12> Co-Signing Physician Notes Patient seen and evaluated with resident and agree with the above findings and plan. Routine care. Patient denying any preeclampsia symptoms. Blood pressures have been well controlled Resident Activity Tracking <Michelle Rubin MD - Last Filed: 06/21/23 08:05> Resident Involvement: Resident Care Provided Care Provided: OB Delivery
[2023-06-21] MEDS: oxyCODONE/ACETAMINOPHEN 5mg/325mg TAB PO PRN ×3 (08:12→18:12)
[2023-06-21] MEDS: DOCUSATE SODIUM 100 MG CAP PO SCH ×2 (08:13→21:08)
[2023-06-21] MEDS: PRENATAL VITAMIN 1 TAB PO SCH (08:13)
[2023-06-21] MEDS: SIMETHICONE 80 MG CHEW PO SCH ×4 (08:13→21:08)
[2023-06-21] MEDS: FERROUS SULFATE 325 MG TAB PO SCH (08:13)
[2023-06-21] MEDS ORDERED: bisacodyL 10 MG SUPP PR PRN (16:06)
[2023-06-21] MEDS: TENOFOVIR ALAFENAMIDE FUMARATE PO SCH (21:08)
[2023-06-22] MEDS: IBUPROFEN 600 MG TAB PO PRN ×3 (05:20→14:34)
[2023-06-22] MEDS: oxyCODONE/ACETAMINOPHEN 5mg/325mg TAB PO PRN ×3 (05:21→14:33)
--- NOTE | 2023-06-22 07:17 | Obstetrical Progress Note ---
Date of Service <Michelle Rubin MD - Last Filed: 06/22/23 07:34> June 22, 2023 Assessment & Plan <Michelle Rubin MD - Last Filed: 06/22/23 07:34> (1) Encounter for assessment: Plan Patient with the above mentioned history and findings was evaluated at bedside and found awake, alert, oriented in all spheres, afebrile, and in no acute distress. Vital signs showed no fever and stable/controlled BP. Her blood type is B positive and most recent hemoglobin is adequate at 9.0 g/dL. She is GBS negative and rubella immune. Overall, patient is doing well clinically and meeting the desired milestones. Given she has remained clinically and hemodynamically stable, will discharge patient today. She was advised to make an appointment for early next week for a BP check. She is also to make an appointment with her OB for her 6 week pp follow up. Discharge instructions discussed. All questions were answered. <Janine Maritnez MD, FACOG - Last Filed: 06/22/23 08:05> (1) Encounter for assessment: Subjective <Michelle Rubin MD - Last Filed: 06/22/23 07:34> Janie is a 27 y/o female who is POD #3 following delivery at 36 6/7 weeks due to pre-eclampsia with severe features and intolerance to the process of labor. She reports feeling well overall this morning. Refers moderate abdominal cramping & 5/10 pain slightly managed on analgesics. She is voiding spontaneously without difficulty. Has passed flatus, but has not yet had a bowel movement. Ambulated some and tolerating meals. Has some persistent lochia with some improvement this morning. Currently trying to breastfeed supplementing with bottle feeds. Constitutional: no fever, no chills or no sweats Denies shortness of breath or difficulty breathing. Cardiovascular: no chest pain or no palpitations Breast: no breast pain Genitourinary (female): no dysuria Neurologic: no headache(s) Denies changes in vision. Physical Exam <Michelle Rubin MD - Last Filed: 06/22/23 07:34> General: Alert. Oriented to person, time, and place. Afebrile. No acute distress. Eyes: pupils equal and reactive to light bilaterally, extraocular movements intact. Cardiac: Regular rate and rhythm, no murmurs/rubs/gallops. Respiratory: Clear to auscultation bilaterally a/p, no wheezes/rales/rhonchi. No increased work of breathing. Symmetrical chest rise. No respiratory distress. Abdomen: Soft, nontender, nondistended. Bowel sounds present. Low transverse surgical scar clean, without surrounding erythema or suppuration, and healing well. Decreased sensation in the immediate area surrounding her wound, more marked in the region superior to the incision. Uterus: Uterine fundus firm, moderately tender, and palpable below umbilicus. Lower Extremities: Bilateral lower extremity swelling without pitting. No deep calf pain. Louie's negative bilaterally. Psych: Euthymic affect. Mood and affect congruence. Regular speech rate and content. Results & Data <Michelle Rubin MD - Last Filed: 06/22/23 07:34> Vital Signs (Past 12 Hours) Vital Signs Temp Pulse Resp BP Pulse Ox O2 Del Method 06/22/23 00:22 36.8 C 80 20 130/81 98 Room Air 06/21/23 19:36 36.6 C 72 20 135/81 99 Room Air Supervising Physician <Janine Martinez MD, FACOG - Last Filed: 06/22/23 08:05> Co-Signing Physician Notes Resident Physician Supervision Note: I interviewed and examined the patient. Discussed with Dr. Rubin and agree with findings and plan as documented in the note. Any exceptions or clarifications are listed here: Doing well. Blood pressures controlled. Meeting milestones for d/c. Instructions given. Documented By: Janine Martinez MD, FACOG Resident Activity Tracking <Michelle Rubin MD - Last Filed: 06/22/23 07:34> Resident Involvement: Resident Care Provided Care Provided: OB Delivery
[2023-06-22] MEDS: FERROUS SULFATE 325 MG TAB PO SCH (08:22)
[2023-06-22] MEDS: SIMETHICONE 80 MG CHEW PO SCH ×2 (08:22→14:33)
[2023-06-22] MEDS: PRENATAL VITAMIN 1 TAB PO SCH (08:22)
[2023-06-22] MEDS: DOCUSATE SODIUM 100 MG CAP PO SCH (08:22)
--- NOTE | 2023-06-23 10:02 | Discharge Summary ---
Date of Service June 23, 2023 Admission HPI Per Admitting Provider Patient is a 27 yo female EDC 07/11/23 who presents to L&D because of decreased movement. heart tracing is reactive and she is janna every 5 minutes but they are mild. However, her BP is in the severe range consistently 160-170/105-110. she denies any PIH symptoms at this time. protein dips negative for protein but urine protein/creatinine ratio is 0.3 and creatinine is 1.01. creatinine in 11/10 was 0.84pregnancy is also complicated by alpha thalassemia minor carrier and chronic active Hepatitis B for which she is followed by GI. her most recent viral load was low and she is no longer taking Tenofovir. Discharge Data Consultations 06/18/23 18:39 Consult Anesthesiology Stat Procedures Performed Operation Date: 06/19/23 15:30 Actual Procedures p Section in LD living female at 1549(Bilateral) - Janine Martinez MD, [facility] Course (1) Encounter for assessment: (2) Pre-eclampsia during in third trimester, antepartum: Plan Patient was admitted and Mag sulfate was started. She had a whiting placed for cervical ripening and low dose pit started. When the whiting fell out, she was 4- 5cm. Unfortunately, her fetus did not tolerate increasing pitocin enough to cause further cervical change. She underwent a primary low transverse c/s without incident. Normal anatomy was noted, PCO ovaries. She was on Magnesium sulfate for 24 hours pp. This was then d/c. She tolerated a regular diet, had pain controlled on oral pain meds, whiting removed and voided, ambulated without difficulty. Her blood pressures remained wnl and she did not require further treatment. She was d/c on 06/22, admitted on 06/18, c/s was on 06/19. she will follow up in the office early the next week for blood pressure check. Coding Level of Care Code None Diagnoses Encounter for assessment Z39.2 Pre-eclampsia during in third trimester, antepartum O14.93
== END 2023-06-22 15:10 | disposition home or self-care (01) | DRG 787 ==
LOC: OPB 16:52 → 4S1 16:52 → 4E2 17:10 → 4S1 18:39 → 4E2 06-20 11:56